=== PATIENT | male | born 1955 | race African-American/Black ===

== ENCOUNTER 2016-10-24 18:00 | Inpatient (IN) ==
[2016-10-24] MEDS ORDERED: ALBUTEROL/IPRATROPIUM 3 ML NEB RESP TX STA (19:32)
[2016-10-24] MEDS ORDERED: ONDANSETRON 4 MG/2 ML VIAL IV STA (19:32)
[2016-10-24] MEDS ORDERED: ASPIRIN 325 MG TABLET PO STA (19:32)
[2016-10-24] MEDS ORDERED: FUROSEMIDE 100 MG/10 ML VIAL IV STA (19:32)
--- NOTE | 2016-10-24 19:35 | EKG Report ---
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
[2016-10-24 20:04] LABS: Basophils % 0.5 % (0.0-0.8); Eosinophils # 0.1 10*3/uL (0.0-0.87); Hematocrit 30.8 VOL% (42.0-52.0); Hemoglobin 10.2 GM/DL (14.0-18.0); Immature Granulocytes % 0.3 %; Immature Granulocytes Absolute 0.02 #; Lymphocytes % 15.7 % (21.2-54.2); Mean Corpuscular HGB Conc 33.1 GM/DL (32-36); Mean Corpuscular Hemoglobin 26 PG (27-34); Mean Platelet Volume 13.7 FL (9.6-12.0); Monocytes # 0.7 10*3/uL (0.11-0.8); Monocytes % 11.5 % (1.7-12.7); Neutrophils # 4.5 10*3/uL (1.4-7.4); Platelet Count 167 T/CUMM (130-400); Red Cell Distribution Width 19.9 % (9.3-17.3); White Blood Count 6.4 T/CUMM (4-12)
[2016-10-24] MEDS ORDERED: MORPHINE 2 MG/1 ML SYRINGE IV STA (20:09)
[2016-10-24] MEDS ORDERED: FUROSEMIDE 40 MG/4 ML VIAL ONE (20:10)
[2016-10-24] MEDS ORDERED: ASPIRIN 325 MG TABLET ONE (20:10)
[2016-10-24] MEDS ORDERED: MORPHINE 2 MG/1 ML SYRINGE ONE (20:10)
[2016-10-24] MEDS ORDERED: FUROSEMIDE 20 MG/2 ML VIAL ONE (20:10)
[2016-10-24] MEDS ORDERED: ONDANSETRON 4 MG/2 ML VIAL ONE (20:10)
[2016-10-24 20:12] LABS: D-Dimer 1.1 MG/L FEU; INR 1.2; PT Patient Result 12.4 SECS
[2016-10-24 20:18] LABS: Albumin 2.6 G/DL (3.4-5.0); Bilirubin,Total 1.1 MG/DL (0.2-1.0); Calcium 8.4 MG/DL (8.5-10.1); Osmolality,Calculated 287.4 MOS/KG (273-304); Potassium 4.2 MMOL/L (3.5-5.1); Total Protein 6.6 G/DL (6.4-8.3)
[2016-10-24 20:20] LABS: Troponin I Only 0.075 NG/ML (0.00-0.045)
--- NOTE | 2016-10-24 20:23 | XRay Report ---
Referring Physician: Lizandro Russell Exam: XR chest 1V portable Date: October 24, 2016 at 7:36 PM Reason: Shortness of breath Comparison: None Findings: The cardiac silhouette is enlarged. The interstitial markings are diffusely prominent bilaterally, which is concerning for pulmonary edema. No pneumothorax is identified, but there is minimal right pleural fluid. No acute osseous process is seen. Impression: 1. Cardiomegaly. 2. The interstitial markings are diffusely prominent bilaterally. This is concerning for mild pulmonary edema. Pneumonia is in the differential but is felt less likely. 3. Minimal right pleural fluid. PROCEDURE INTERPRETED AT [facility] DEPARTMENT OF RADIOLOGY Final Report Signed by: Dr. Linda Canchola
--- NOTE | 2016-10-24 21:13 | Emergency Department Note ---
Francisco Bingham Manpreet, am scribing for, and in the presence of, Lizandro Russell MD 19:27. Drew Bingham Charles R, MD, personally performed the services described in this documentation, ascribed by Joseph Singh in my presence, and it is both accurate and complete . Arrival - Arrival Chief Complaint: Shortness of Breath Stated Complaint: stent/sob/swelling ED Nursing Triage Note: c/o sob with walking. pt also has swelling legs. onset 06/11/16. pt states was dx with pneumonia on 06/11/16 and given a shot of steriods and thats when the swelling and sob started. Mode of Arrival: Wheelchair Limitations: No Limitations Source: Patient Time Seen by Provider: 10/24/16 19:00 - History of Present Illness HPI Narrative: Pt is a 61 y/o male with PMHx of HTN, IDDM, Dyslipidemia, and cardiac catheterization, who presents to the ED with CC of SOB and swelling all over his body since May 2016. Pt was hospitalized in May 2016 where he was Dx for PNA and CHF. Pt finds it difficult to walk across the room without being SOB. Pt takes Plavix and denies CP. Pt's PCP is Dr. Julianne Fermin and protection analyst is Dr Esquivel. No other pains/complaints reported to ED. Onset (ago): month(s) Consistency: constant Severity: moderate Severity scale (1-10): 4 Allergies/Adverse Reactions: Allergies Allergy/AdvReac Type Severity Reaction Status Date / Time No Known Allergies Allergy Unverified 10/24/16 18:12 Review of System - Review of System 12 point system: reviewed and no additional remarkable complaints except as stated - Review of System Constitutional: Absent: chills, fever Respiratory: Present: respiratory distress Cardiovascular: Present: dyspnea on exertion, edema, other (Bilateral LE edema) . Absent: chest pain Gastrointestinal: Absent: abdominal pain, nausea, vomiting Musculoskeletal: Absent: arm pain, leg pain, neck pain Neurological: Absent: headache, weakness Medical,Surgical,& Family Hx - Medical History Cardio: History of: Hypertension Endocrine: History of: Diabetes Mellitus (IDDM), Dyslipidemia - Surgical History Cardiac Surgeries: Sugical HX of: Cardiac Catheterization (stent 2006) - Social History Smoking Status: Never smoker Frequency of Alcohol Use: None Type of Drug Use: None Exam Vital Signs: Vital Signs Temperature 97.2 F L 10/24/16 18:02 Pulse Rate 68 10/24/16 20:02 Respiratory Rate 8 L 10/24/16 20:02 Blood Pressure 174/82 10/24/16 18:02 O2 Sat by Pulse Oximetry 99 10/24/16 20:02 - General General appearance: alert, in no apparent distress, other (Anasarca) - Head Head exam: Present: atraumatic, normocephalic - Eye Eye exam: Present: normal appearance, PERRL, EOMI - ENT ENT exam: Present: normal exam, normal oropharynx, mucous membranes moist, TM's normal bilaterally - Neck Neck exam: Present: full ROM, trachea midline, other (JVD). Absent: normal inspection, tenderness, thyromegaly - Chest Chest inspection: Present: normal inspection, symmetric chest wall rise. Absent : tenderness - Respiratory Respiratory exam: Present: rales (Bilateral Rales). Absent: normal lung sounds bilaterally, accessory muscle use - Cardiovascular Cardiovascular exam: Present: regular rate, normal rhythm, normal heart sounds. Absent: murmur, rubs, gallop - Abdominal Exam Abdominal exam: Present: soft, distention, normal bowel sounds. Absent: tenderness - Extremities Exam Extremities exam: Present: full ROM, other (+3 Bilat Edema). Absent: normal inspection, tenderness - Back Exam Back exam: Present: normal inspection, full ROM. Absent: tenderness - Neurological Exam Neurological exam: Present: alert, oriented X3, CN II-XII intact, reflexes normal - Psychiatric Psychiatric exam: Present: normal affect, normal mood - Skin Skin exam: Present: warm, dry, intact, normal color. Absent: pallor Course - Consultations Consultation #1: Hospitalist will admit patient Time: 21:22 Results - Labs CBC & BMP: 10/24/16 19:08 10/24/16 19:08 Lab Results: I have reviewed the patients labs Labs: Laboratory Tests 10/24/16 10/24/16 19:08 19:08 WBC 6.4 RBC 3.90 Hgb 10.2 L Hct 30.8 L MCV 79.0 L MCH 26 L RDW 19.9 H MPV 13.7 H Lymph % (Auto) 15.7 L Lymph # (Auto) 1.0 L INR 1.2 PT Patient/Control Mix 12.4 D-Dimer, Quantitative 1.1 Laboratory Tests 10/24/16 19:08 Sodium 140 Potassium 4.2 Chloride 107 Carbon Dioxide 25 BUN 25 H Creatinine 1.40 H Glucose 187 H Calcium 8.4 L Total Bilirubin 1.10 H AST 80 H ALT 113 H Alkaline Phosphatase 421 H Troponin I 0.075 H Albumin 2.6 L Globulin 4.0 H Albumin/Globulin Ratio 0.6 L Laboratory Tests 10/24/16 19:08 B-Natriuretic Peptide 1215 H - Diagnostic Findings Procedure: Chest x-ray: report reviewed by me (1. Cardiomegaly. 2. The interstitial markings are diffusely prominent bilaterally. This is concerning for mild pulmonary edema. Pneumonia is the differential but is felt less likely. 3. Minimal right pleural fluid.) Critical Care Time Critical Care Time: Yes Total Critical Care Time: 60 Disposition Clinical Impression: Congestive heart failure, Acute dyspnea, Exertional dyspnea, Anasarca, Elevated LFTs, Morbid obesity, Peripheral vascular disease, Pedal edema, Renal insufficiency Case discussed with: patient, patient's family Disposition: Still a Patient Condition: Guarded Time of Disposition: 21:23
[2016-10-24 21:40] LABS: Apearance,Urine CLEAR (Clear); Bacteria,Urine Occasional /HPF (Few); Bilirubin,Urine Negative (Negative); Blood, Urine Small mg/dL (Negative); Glucose,Urine (UA) 50 mg/dL (Negative); Granular Casts,Urine 15 /LPF (0-1); Hyaline Casts,Urine 12 /LPF (0-3); Ketones,Urine Negative (Negative); Mucus,Urine Occasional /LPF (Occasional); Nitrite,Urine Negative (Negative); Protein,Urine >=500 MG/DL; RBC,Urine 1 /HPF (0-4); Squamous Epithelial Cell,Urine Occasional /HPF (0-10); Urine Color Yellow (Yellow); Urine Specific Gravity 1.013 (1.001-1.035); WBC,Urine <1 /HPF (0-6)
--- NOTE | 2016-10-24 22:19 | Hospitalist History & Physical ---
Assessment and Plan (1) Congestive heart failure Status: Acute Current Visit: Yes (2) Acute dyspnea Status: Acute Current Visit: Yes (3) Exertional dyspnea Status: Acute Current Visit: Yes (4) Anasarca Status: Acute Current Visit: Yes (5) Elevated LFTs Status: Acute Current Visit: Yes (6) Morbid obesity Status: Acute Current Visit: Yes (7) Peripheral vascular disease Status: Acute Current Visit: Yes (8) Pedal edema Status: Acute Assessment and plan: Our plan for this patient will be admission to our service. He will need to be admitted to telemetry bed and we will schedule Lasix twice a day. Will also check cardiac enzymes. Check 2D echo. Repeat CMP in the morning. I suspect his increase in transaminases is associated with his heart failure. Will continue other home meds as appropriate. Obtain records from [place]. Current Visit: Yes History of Present Illness Chief complaint: Shortness of breath and lower extremity swelling History of present illness: Mr. Ahumada is a 61 year old male with past medical history significant for hypertension, congestive heart failure, diabetes and dyslipidemia who is normally sees Dr. Long at [facility]. They said his lower extremity edema does not improve seems like to get worse at times and they wanted a second opinion and came to our hospital for further evaluation. Apparently he was hospitalized in May 2016 with a diagnosis of congestive heart failure and a pneumonia. Patient finds it difficult to walk across room without getting short of breath. He does weigh 141 kg and morbidly obese. I was consulted to admit him through the emergency room Allergies Allergy/AdvReac Type Severity Reaction Status Date / Time No Known Allergies Allergy Unverified 10/24/16 18:12 Medical,Surgical,& Family Hx - Medical History Cardio: History of: Hypertension Endocrine: History of: Diabetes Mellitus (IDDM), Dyslipidemia - Surgical History Cardiac Surgeries: Sugical HX of: Cardiac Catheterization (stent 2006) - Family History Family History: Reports;: Family Hypertension - Social History Smoking Status: Never smoker Frequency of Alcohol Use: None Type of Drug Use: None 12 point system: reviewed and no additional remarkable complaints except as stated Exam - Constitutional General appearance: no acute distress, morbidly obese - Head Head exam: Present: normal inspection - Eye Eye exam: Present: EOMI Pupils: Present: KENAN - ENT ENT exam: Present: normal exam - Neck Neck exam: Present: normal inspection - Respiratory Respiratory exam: Present: rales - Cardiovascular Cardiovascular exam: Present: regular rate and rhythm - GI/Abdominal GI/Abdominal exam: Present: normal bowel sounds, distended, hyperactive bowel sounds. Absent: tenderness, rebound - Extremities Exam Extremities exam: Present: edema - Back Exam Back exam: Present: normal inspection - Neurological Exam Neurological exam: Present: alert - Psychiatric Psychiatric exam: Present: normal affect - Skin Skin exam: Present: normal color Results - Labs CBC & BMP: 10/24/16 19:08 10/24/16 19:08
[2016-10-24] MEDS ORDERED: MAGNESIUM SULF RIDER 4 GM in PREMIX 1 EACH IV PRN (22:22)
[2016-10-24] MEDS ORDERED: ONDANSETRON 4 MG/2 ML VIAL IV PRN (22:22)
[2016-10-24] MEDS ORDERED: MAGNESIUM SULF RIDER 2 GM in PREMIX 1 EACH IV PRN (22:22)
[2016-10-24] MEDS ORDERED: GLUCAGON 1 MG VIAL IM PRN (22:22)
[2016-10-24] MEDS ORDERED: ACETAMINOPHEN 325 MG TABLET PO PRN (22:22)
[2016-10-24] MEDS ORDERED: DEXTROSE 50% 25 GM/50 ML VIAL IV PRN (22:22)
[2016-10-24] MEDS ORDERED: LABETALOL 20 MG/4 ML SYRINGE IV PRN (22:27)
[2016-10-25] MEDS: ENOXAPARIN 40 MG/0.4 ML SYRINGE SUBCUT SCH ×2 (00:10→21:40)
[2016-10-25] MEDS ORDERED: ONDANSETRON 4 MG TABLET PO PRN (01:00)
[2016-10-25 02:10] LABS: Basophils % 0.3 % (0.0-0.8); Eosinophils # 0.1 10*3/uL (0.0-0.87); Eosinophils % 1.9 % (0.00-10.9); Hemoglobin 9.8 GM/DL (14.0-18.0); Immature Granulocytes % 0.3 %; Immature Granulocytes Absolute 0.02 #; Lymphocytes # 1.3 10*3/uL (1.4-4.0); Lymphocytes % 20.5 % (21.2-54.2); Mean Corpuscular HGB Conc 32.7 GM/DL (32-36); Mean Corpuscular Hemoglobin 26 PG (27-34); Mean Corpuscular Volume 78.5 FL (87-102); Mean Platelet Volume 12.9 FL (9.6-12.0); Monocytes # 0.6 10*3/uL (0.11-0.8); Monocytes % 9.7 % (1.7-12.7); Neutrophils # 4.1 10*3/uL (1.4-7.4); Neutrophils % 67.3 % (38.7-73.9); Platelet Count 157 T/CUMM (130-400); Red Blood Count 3.82 MC/CUMM (3.8-5.5); Red Cell Distribution Width 19.9 % (9.3-17.3); White Blood Count 6.2 T/CUMM (4-12)
[2016-10-25 02:43] LABS: Troponin I Only 0.071 NG/ML (0.00-0.045)
[2016-10-25 07:35] LABS: Alanine Aminotransferase 99 U/L (16-61); Albumin 2.3 G/DL (3.4-5.0); Alkaline Phosphatase 386 U/L (45-117); Aspartate Amino Transferase 69 U/L (0-37); Blood Urea Nitrogen 25 MG/DL (7-18); Calcium 8.4 MG/DL (8.5-10.1); Glucose 223 MG/DL (74-106); Osmolality,Calculated 293.1 MOS/KG (273-304); Potassium 4.3 MMOL/L (3.5-5.1); Sodium 142 MMOL/L (136-145)
[2016-10-25 07:37] LABS: Troponin I Only 0.068 NG/ML (0.00-0.045)
[2016-10-25] MEDS: FUROSEMIDE 40 MG/4 ML VIAL IV SCH ×2 (08:48→15:15)
[2016-10-25] MEDS ORDERED: ENALAPRIL 10 MG TABLET PO SCH (09:00)
[2016-10-25] MEDS: INSULIN REGULAR 100 UNIT/ML SUBCUT SCH ×4 (09:44→21:39)
[2016-10-25] MEDS: CLOPIDOGREL 75 MG TABLET PO SCH (09:44)
[2016-10-25] MEDS: METOPROLOL SUCCINATE XL 100 MG TABLET PO SCH (09:45)
[2016-10-25] MEDS: ASPIRIN EC 81 MG TABLET PO SCH (09:45)
[2016-10-25] MEDS: SPIRONOLACTONE 25 MG TABLET PO SCH (09:45)
[2016-10-25] MEDS: ISOSORBIDE MONONITRATE 60 MG TABLET PO SCH (09:45)
[2016-10-25] MEDS: PANTOPRAZOLE 40 MG TABLET PO SCH (09:45)
--- NOTE | 2016-10-25 12:04 | Cardiology Consult Note ---
<Janice Fonseca E - Last Filed: 10/25/16 12:50> Assessment and Plan - Time spent with patient Time spent with patient: Greater than 30 minutes (due to assessment, plan, and documentation) (1) Congestive heart failure Status: Acute Assessment and plan: SEE PLAN OF CARE LISTED BELOW. Current Visit: Yes (2) Acute dyspnea Status: Acute Assessment and plan: SEE PLAN OF CARE LISTED BELOW. Current Visit: Yes (3) Anasarca Status: Acute Assessment and plan: SEE PLAN OF CARE LISTED BELOW. Current Visit: Yes (4) Exertional dyspnea Status: Acute Assessment and plan: SEE PLAN OF CARE LISTED BELOW. Current Visit: Yes (5) Elevated LFTs Status: Acute Assessment and plan: SEE PLAN OF CARE LISTED BELOW. Current Visit: Yes (6) Hypertension Status: Chronic Assessment and plan: SEE PLAN OF CARE LISTED BELOW. Current Visit: Yes (7) Diabetes Status: Chronic Assessment and plan: SEE PLAN OF CARE LISTED BELOW. Current Visit: Yes (8) Hyperlipidemia Status: Chronic Assessment and plan: SEE PLAN OF CARE LISTED BELOW. Current Visit: Yes (9) Morbid obesity Status: Chronic Assessment and plan: SEE PLAN OF CARE LISTED BELOW. Current Visit: Yes (10) Peripheral vascular disease Status: Chronic Assessment and plan: SEE PLAN OF CARE LISTED BELOW. Current Visit: Yes (11) Renal insufficiency Status: Acute Assessment and plan: SEE PLAN OF CARE LISTED BELOW. Current Visit: Yes History of Present Illness - Data of Consult Patient: new to practice Consult date: 10/24/16 Requesting Physician: Tye Watts Primary care physician: Julianne Arana - Consult Narrative Reason for consult: CHF, BLE edema History of present illness: PUBLICITY MANAGER: DR. NORIEGA @ [place] PCP: DR. JULIANNE ARANA Mr. Ahumada is a 61 year old male with a history of congestive heart failure, peripheral vascular disease, hypertension, diabetes, hyperlipidemia, morbid obesity. Risk factors are significant for: age, hypertension, hyperlipidemia, diabetes, sedentary lifestyle, obesity. He is a lifetime nonsmoker. Mr. Ahumada presented to our emergency room last night for further evaluation of his bilateral lower extremity edema. He has been followed at [facility] and tells me he was hospitalized in May 2016 with CHF and pneumonia and has been having trouble ever since. He tells me that his edema will improve and then worsen and has fluctuated since May and he wanted to obtain a second opinion regarding causes and treatment options. We are currently trying to obtain recent records from [facility]. He reports that he has undergone stress testing and heart catheterization but does not recall having stents placed. Mr. Ahumada tells me that he has had dyspnea on exertion in addition to his edema. He denies chest pain, palpitations, dizziness, lightheadedness, or syncope. He has significant pitting edema in his bilateral lower extremities, in the pannus of his abdomen, and in his thighs and buttocks. On admission, his BNP was noted to be 1215 and creatinine was 1.4. He had some trivially elevated troponins with normal CK-MB and CPK. His chest x-ray is suggestive of mild pulmonary edema bilaterally. Of note, Mr. Ahumada reports he previously saw Dr. Bradley before he left [place] and thinks he might like to follow up with him after discharge. I informed the patient we would be happy to schedule a follow up appointment with the windows consultant of his choosing. Dr. Antunez to follow with further plan and addendum. ASSESSMENT/PLAN: 1. CONGESTIVE HEART FAILURE - 2. ACUTE DYSPNEA - Continue current plan of care. O2 PRN. Continue Lasix. Currently breathing comfortably on O2 via NBP. 3. ANASARCA - Patient is currently being treated with diuretics. This is slowly improving. 4. EXERTIONAL DYSPNEA - Continue current medications. Will discuss external facility records with Dr. Antunez and await his recommendations. 5. ELEVATED LFT'S - Check hepatitis panel. 6. HYPERTENSION - Continue current medications. May require medication adjustments. Will monitor. 7. DIABETES - Hospital medicine following. 8. HYPERLIPIDEMIA - Check lipid panel in AM. Continue Lovastatin. 9. MORBID OBESITY 10. PERIPHERAL VASCULAR DISEASE - Followed by Dr. Jayson Parr. 11. RENAL INSUFFICIENCY - Creatinine stable at 1.4. Will follow BMP. At the time of my exam and interview with the patient and his , I did not have access to his [place] records. At the time of my documentation, they have now been scanned into the computer and reveal that he had an abnormal stress test in May 2016 and declined cardiac catheterization in favor of medical management. Echocardiogram performed on 06/08/16 revealed an ejection fraction of 50% +/- 5% and cardiac stress test revealed EF 28% with findings suggestive of moderate to severe extensive myocardial infarction with minimal gisela- infarction ischemia versus severe obstructive CAD in these segments. According to the [place] records, he has a history of myocardial infarction with stent placement in 2009. CC: Christina Alves MD - Home Medications and Allergies Home Medications: Home Medications Medication Instructions Recorded Confirmed Type Aspirin [Aspirin EC] 81 mg PO DAILY 10/24/16 10/24/16 History Clopidogrel Bisulfate [Clopidogrel] 75 mg PO DAILY 10/24/16 10/24/16 History Enalapril Tab [Vasotec Tab] 20 mg PO BID 10/24/16 10/24/16 History Furosemide [Furosemide] 40 mg PO DAILY 10/24/16 10/24/16 History Hydralazine HCl [Hydralazine HCl] 50 mg PO TID 10/24/16 10/24/16 History Insulin Detemir [Levemir FlexPen] 40 unit SUBCUT BID 10/24/16 10/24/16 History Isosorbide Mononitrate [Isosorbide 60 mg PO DAILY 10/24/16 10/24/16 History Mononitrate ER] Lovastatin [Lovastatin] 20 mg PO DAILY W/SUPPER 10/24/16 10/24/16 History Metformin HCl [Metformin HCl] 1,000 mg PO BID 10/24/16 10/24/16 History Metoprolol Succinate [Metoprolol 100 mg PO DAILY 10/24/16 10/24/16 History Succinate] Ondansetron Odt Tab [Zofran Odt] 4 mg PO Q8H 10/24/16 10/24/16 History Spironolactone [Spironolactone] 25 mg PO DAILY 10/24/16 10/24/16 History Allergies/Adverse Reactions: Allergies Allergy/AdvReac Type Severity Reaction Status Date / Time No Known Allergies Allergy Unverified 10/24/16 18:12 Review of systems: - Constitutional: Present: stops breathing during sleep, As per HPI. Absent: anorexia, chills, daytime sleepiness, excessive sweating, fever(s), frequent falls, headache(s), increased appetite, lethargy, malaise, night sweats, weakness, weight gain, weight loss, fatigue. - EENT Eyes: Present: As per HPI. Absent: blurry vision, diplopia, loss of vision Ears: Present: As per HPI. Absent: decreased hearing, ear discharge, ear pain Nose, mouth and throat: Present: As per HPI. Absent: dysphagia, epistaxis, headache(s), hoarseness, lip swelling, nasal congestion, neck mass, neck pain, sinus pressure, sore throat, throat swelling, tongue swelling, vertigo - Cardiovascular: Present: dyspnea, dyspnea on exertion, edema, as per HPI. Absent: chest pain at rest, chest pain with activity, claudication, diaphoresis , radiating jaw, neck or arm pain, lightheadedness, orthopnea, palpitations, PND - Respiratory: Present: snoring, dyspnea, dyspnea on exertion, as per HPI. Absent: cough, hemoptysis, wheezing, pain on inspiration - Gastrointestinal: Present: As per HPI. Absent: abdominal pain, bloating, change in bowel habits, constipation, diarrhea, heartburn, hematemesis, hematochezia, loose stools, melena, nausea, vomiting - Genitourinary: Present: As per HPI. Absent: difficulty urinating, dysuria, flank pain, hematuria, nocturia, urinary frequency, urinary incontinence - Musculoskeletal: Present: As per HPI. Absent: arthralgias, back pain, joint swelling, limited range of motion, muscle cramps, muscle weakness, myalgias - Neurological: Present: As per HPI. Absent: abnormal gait, abnormal speech, behavioral changes, confusion, convulsions, disequilibrium, dizziness, focal weakness, frequent falls, headache(s), memory loss, numbness, paresthesias, radicular pain, syncope, tremor(s) - Psychiatric: Present: As per HPI. Absent: anxiety, confusion, depression, panic attacks - Endocrine: Present: As per HPI. Absent: cold intolerance, fatigue, heat intolerance, polydipsia, polyphagia - Hematologic/Lymphatic: Present: As per HPI. Absent: easy bleeding, easy bruising, lymphadenopathy Medical,Surgical,& Family Hx - Medical History Cardio: History of: CHF, Hypertension, PVD Endocrine: History of: Diabetes Mellitus (IDDM), Dyslipidemia - Surgical History Cardiac Surgeries: Sugical HX of: Cardiac Catheterization (stent 2006) - Family History Family History: Reports;: Family Hypertension - Social History Smoking Status: Never smoker Frequency of Alcohol Use: None Type of Drug Use: None Marital Status: Lives With:: Spouse Functional capacity: independent ambulation Physical Examination Vital Signs Temp Pulse Resp BP Pulse Ox 97.2 F L 70 20 174/82 97 10/24/16 18:02 10/24/16 18:02 10/24/16 18:02 10/24/16 18:02 10/24/16 18:02 Other: General appearance: Pleasant and cooperative. Morbid obesity, no acute distress. - Head Head exam: Present: normal inspection, normocephalic, atraumatic. Absent: hematoma, laceration - Eye Eye exam: Present: EOMI. Absent: conjunctival injection, nystagmus, periorbital swelling, scleral icterus, laceration to eyelids Pupils: Present: PERRL. Absent: constricted, dilated, fixed, irregular, unequal - ENT ENT exam: Present: normal exam, normal external ear exam - Neck Neck exam: Present: normal inspection. Absent: lymphadenopathy, meningismus, tenderness, thyromegaly - Respiratory Respiratory exam: Present: clear to auscultation bilaterally, decreased breath sounds to bilateral lower bases. Absent: accessory muscle use, chest wall tenderness - Cardiovascular Cardiovascular exam: Present: regular rate and rhythm. Absent: carotid bruit, gallop, JVD, rubs, murmur - GI/Abdominal GI/Abdominal exam: Present: normal bowel sounds, soft, pitting edema to abdominal pannus. Absent: distended, firm, guarding, hernia, mass, tenderness, rebound. - Extremities Exam Extremities exam: Present: normal inspection, normal capillary refill. Upper extremity pulses 2+. Lower extremity pulses 2+. 2+ BLE pitting edema. Absent: calf tenderness -Musculoskeletal Exam Musculoskeletal: Present: No Fluid Collection, No Pain, Normal Range of Motion - Back Exam Back exam: Present: normal inspection. Absent: muscle spasm, vertebral tenderness - Neurological Exam Neurological exam: Present: alert, oriented X3, grossly intact without resting or essential tremor - Psychiatric Psychiatric exam: Present: normal affect, normal mood - Skin Skin exam: Present: normal color, warm, dry, intact. Absent: cyanosis, diaphoretic, rash, urticaria Result/EKG - Labs CBC & BMP: 10/25/16 01:40 10/25/16 03:37 Lab Results: I have reviewed the past 24 hour labs Labs: Laboratory Results - last 24 hr 10/25/16 10/25/16 10/25/16 01:40 01:40 03:37 WBC 6.2 RBC 3.82 Hgb 9.8 L Hct 30.0 L MCV 78.5 L MCH 26 L MCHC 32.7 RDW 19.9 H Plt Count 157 MPV 12.9 H Neut % (Auto) 67.3 Lymph % (Auto) 20.5 L [place] % (Auto) 9.7 Eos % (Auto) 1.9 Baso % (Auto) 0.3 Neut # (Auto) 4.1 Lymph # (Auto) 1.3 L [place] # (Auto) 0.6 Eos # (Auto) 0.1 Baso # (Auto) 0.0 Immature Gran % 0.3 Nucleated RBC % 0.0 Immature Gran # 0.02 Nucleated RBCs # 0.00 Sodium 142 Potassium 4.3 Chloride 109 H Carbon Dioxide 25 Anion Gap 12.3 BUN 25 H Creatinine 1.40 H GFR Calculation 94 BUN/Creatinine Ratio 17.00 Glucose 223 H POC Glucose Calculated Osmolality 293.1 Calcium 8.4 L Total Bilirubin 0.90 AST 69 H ALT 99 H Alkaline Phosphatase 386 H Total Creatine Kinase 185 161 CK-MB (CK-2) 3.0 2.7 Troponin I 0.071 H 0.068 H Total Protein 6.0 L Albumin 2.3 L Globulin 3.7 H Albumin/Globulin Ratio 0.6 L 10/25/16 10/25/16 08:02 11:15 WBC RBC Hgb Hct MCV MCH MCHC RDW Plt Count MPV Neut % (Auto) Lymph % (Auto) [place] % (Auto) Eos % (Auto) Baso % (Auto) Neut # (Auto) Lymph # (Auto) [place] # (Auto) Eos # (Auto) Baso # (Auto) Immature Gran % Nucleated RBC % Immature Gran # Nucleated RBCs # Sodium Potassium Chloride Carbon Dioxide Anion Gap BUN Creatinine GFR Calculation BUN/Creatinine Ratio Glucose POC Glucose 203 H 264 H Calculated Osmolality Calcium Total Bilirubin AST ALT Alkaline Phosphatase Total Creatine Kinase CK-MB (CK-2) Troponin I Total Protein Albumin Globulin Albumin/Globulin Ratio - EKG EKG results: interpreted by me, sinus rhythm <Tye Antunez - Last Filed: 10/25/16 18:30> Assessment and Plan (1) Hypoalbuminemia Status: Acute Assessment and plan: This may very well be secondary to his proteinuria which is quite significant based on his urinalysis. Current Visit: Yes (2) Proteinuria Status: Acute Assessment and plan: Etiology of this is unclear but probably has nephrotic syndrome. That certainly would account for much of his findings. Await his 24-hour urine. Current Visit: Yes (3) Nephrotic syndrome Status: Acute Assessment and plan: Evidence of this is his severe proteinuria. We will await a 24-hour urine. Current Visit: Yes History of Present Illness - Consult Narrative History of present illness: Patient personally interviewed and examined and chart reviewed. His family is present including a sister and son. 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 I agree with the evaluation and assessment and plan. In addition and summation Mr. Ahumada is a 61 year old male who is been evaluated previously by Dr. Noriega at [facility]. It is interesting as noted above that he had echocardiogram that looked fairly unremarkable but a stress test with the ejection fraction is markedly suppressed compared to his echocardiogram and release possible extensive myocardial infarction and gisela- infarct ischemia. The patient though is been asymptomatic without any angina or anginal equivalent. He does have some shortness of breath. He is been admitted for evaluation of this. His echocardiogram reveals an ejection fraction around 55% with right and left atrial enlargement with tricuspid regurgitation and at least moderately elevated right-sided pressures. Of interesting findings is that historically of having what sounds to be sleep apnea. He certainly has marked obesity a lot as a centralized. This certainly can contribute to his other issues. His lab work reveals hypoalbuminemia and significant proteinuria. This certainly raises the issue of nephrotic syndrome. I think nephrology needs to be involved in this case. At present I think we need to get a 24-hour urine and manage his fluid the best we can but must be cautious with his hypo-albuminemia causing prerenal insufficiency. We will continue to monitor the patient while in the hospital. I do not think are catheterization is indicated at this time. CC: Christina Alves MD Physical Examination Vital Signs Temp Pulse Resp BP Pulse Ox 97.2 F L 70 20 174/82 97 10/24/16 18:02 10/24/16 18:02 10/24/16 18:02 10/24/16 18:02 10/24/16 18:02 Result/EKG - Labs CBC & BMP: 10/25/16 01:40 10/25/16 03:37 Labs: Laboratory Results - last 24 hr 10/25/16 10/25/16 10/25/16 01:40 01:40 03:37 WBC 6.2 RBC 3.82 Hgb 9.8 L Hct 30.0 L MCV 78.5 L MCH 26 L MCHC 32.7 RDW 19.9 H Plt Count 157 MPV 12.9 H Neut % (Auto) 67.3 Lymph % (Auto) 20.5 L [place] % (Auto) 9.7 Eos % (Auto) 1.9 Baso % (Auto) 0.3 Neut # (Auto) 4.1 Lymph # (Auto) 1.3 L [place] # (Auto) 0.6 Eos # (Auto) 0.1 Baso # (Auto) 0.0 Immature Gran % 0.3 Nucleated RBC % 0.0 Immature Gran # 0.02 Nucleated RBCs # 0.00 Sodium 142 Potassium 4.3 Chloride 109 H Carbon Dioxide 25 Anion Gap 12.3 BUN 25 H Creatinine 1.40 H GFR Calculation 94 BUN/Creatinine Ratio 17.00 Glucose 223 H POC Glucose Calculated Osmolality 293.1 Calcium 8.4 L Total Bilirubin 0.90 AST 69 H ALT 99 H Alkaline Phosphatase 386 H Total Creatine Kinase 185 161 CK-MB (CK-2) 3.0 2.7 Troponin I 0.071 H 0.068 H Total Protein 6.0 L Albumin 2.3 L Globulin 3.7 H Albumin/Globulin Ratio 0.6 L Amylase Lipase IgG IgA IgM Hepatitis A IgM Ab Hep Bs Antigen Hep B Core IgM Ab Hepatitis C Antibody 10/25/16 10/25/16 10/25/16 08:02 11:15 12:29 WBC RBC Hgb Hct MCV MCH MCHC RDW Plt Count MPV Neut % (Auto) Lymph % (Auto) [place] % (Auto) Eos % (Auto) Baso % (Auto) Neut # (Auto) Lymph # (Auto) [place] # (Auto) Eos # (Auto) Baso # (Auto) Immature Gran % Nucleated RBC % Immature Gran # Nucleated RBCs # Sodium Potassium Chloride Carbon Dioxide Anion Gap BUN Creatinine GFR Calculation BUN/Creatinine Ratio Glucose POC Glucose 203 H 264 H Calculated Osmolality Calcium Total Bilirubin AST ALT Alkaline Phosphatase Total Creatine Kinase CK-MB (CK-2) Troponin I Total Protein 6.4 Albumin Globulin Albumin/Globulin Ratio Amylase 30 Lipase 161.0 IgG 1470 IgA 308 IgM 92 Hepatitis A IgM Ab Hep Bs Antigen Hep B Core IgM Ab Hepatitis C Antibody 05/10/17 05/10/17 12:29 16:53 WBC RBC Hgb Hct MCV MCH MCHC RDW Plt Count MPV Neut % (Auto) Lymph % (Auto) [place] % (Auto) Eos % (Auto) Baso % (Auto) Neut # (Auto) Lymph # (Auto) [place] # (Auto) Eos # (Auto) Baso # (Auto) Immature Gran % Nucleated RBC % Immature Gran # Nucleated RBCs # Sodium Potassium Chloride Carbon Dioxide Anion Gap BUN Creatinine GFR Calculation BUN/Creatinine Ratio Glucose POC Glucose 163 H Calculated Osmolality Calcium Total Bilirubin AST ALT Alkaline Phosphatase Total Creatine Kinase CK-MB (CK-2) Troponin I Total Protein Albumin Globulin Albumin/Globulin Ratio Amylase Lipase IgG IgA IgM Hepatitis A IgM Ab Negative Hep Bs Antigen Negative Hep B Core IgM Ab Negative Hepatitis C Antibody Negative
[2016-10-25 13:51] LABS: Hepatitis A Ab IgM Quant 0.07 Index; Hepatitis A Ab IgM Result Negative (Negative); Hepatitis B Core IgM Quant 0.17 Index; Hepatitis B Core IgM Result Negative (Negative); Hepatitis B Surface Ag Quant 0.38 Index; Hepatitis B Surface Ag Result Negative (Negative); Hepatitis C Virus Ab Quant 0.12 Index; Hepatitis C Virus Ab Result Negative (Negative)
--- NOTE | 2016-10-25 14:06 | Physician Query Form ---
CLICK EDIT DOCUMENT TO SELECT QUERY ANSWER --> OK --> SIGN Juliann Akers RN Clinical Pack Out Operator W) [phone] (f) [phone] [email or web address] PROVIDERS: Make your selection(s) from the choices in EACH section by typing an "x" and enter comments in the comment section. Please use your independent medical judgment in providing your response. This request does not imply that any particular answer is desired or expected. CLINICAL INDICATORS: (Providers should not edit this section) Based on documentation of "acute CHF. His chest x-ray is suggestive of mild pulmonary edema bilaterally. Echocardiogram performed on 06/08/16 revealed an ejection fraction of 50% +/- 5%", [id number]. Pt. treated with IV Lasix. Please provide further specificity regarding CHF. TYPE: ( ) Systolic (HFrEF - heart failure with reduced systolic function/EF) (x ) Diastolic (HFpEF - heart failure with preserved systolic function/EF) ( ) Combined Systolic/Diastolic ( ) Other, please specify: ( ) Clinically unable to determine ( ) The patient does NOT have CHF COMMENTS: Use of terms such as suspected, likely, or probable (associated with a specific diagnosis that is being evaluated, monitored, or treated as if it exists) are acceptable and can be restated in the discharge summary if not ruled out. MTDD
[2016-10-25 16:39] LABS: Total Protein 6.4 G/DL (6.4-8.3)
--- NOTE | 2016-10-25 17:24 | Sleep Medicine Consult ---
Assessment and Plan (1) Unspecified sleep apnea Status: Acute Assessment and plan: This patient does have symptoms concerning for sleep apnea and with his medical comorbidities, I would recommend sleep study. We may be able to do HST at some point but if not, he needs to be studied in the lab. I do think in lab polysomnography would be a better evaluation for him given the complexity of his illnesses. Current Visit: Yes (2) Congestive heart failure Status: Acute Assessment and plan: Untreated sleep apnea certainly can be an exacerbating factor to both diastolic and systolic related congestive heart failure. Current Visit: Yes (3) Elevated LFTs Status: Acute Assessment and plan: This patient does have evidence of ascites on physical exam and in addition, does have abnormal liver function studies. I would recommend ultrasound evaluation of his liver and abdomen. Some of this could be related to a component of right heart failure. He denies any significant history of alcohol consumption. Current Visit: Yes History of Present Illness Chief complaint: Sleep apnea History of present illness: Mr. Ahumada is a 61 year old male who had been admitted with shortness of breath and generalized swelling. During the course of his evaluation, it was noted that he was a loud snore. Sleep medicine was consulted. The patient's is not present. He does acknowledge a history of snoring and does sometimes awaken from sleep short of breath. He does awaken multiple times during the night to urinate. He does have sleepiness during the day. His main complaint has been recent increase in generalized swelling, particularly abdominal swelling and edema. He said exercise intolerance and shortness of breath. He has never had a previous sleep evaluation. Home Medications Medication Instructions Recorded Confirmed Type Aspirin [Aspirin EC] 81 mg PO DAILY 10/24/16 10/24/16 History Clopidogrel Bisulfate [Clopidogrel] 75 mg PO DAILY 10/24/16 10/24/16 History Enalapril Tab [Vasotec Tab] 20 mg PO BID 10/24/16 10/24/16 History Furosemide [Furosemide] 40 mg PO DAILY 10/24/16 10/24/16 History Hydralazine HCl [Hydralazine HCl] 50 mg PO TID 10/24/16 10/24/16 History Insulin Detemir [Levemir FlexPen] 40 unit SUBCUT BID 10/24/16 10/24/16 History Isosorbide Mononitrate [Isosorbide 60 mg PO DAILY 10/24/16 10/24/16 History Mononitrate ER] Lovastatin [Lovastatin] 20 mg PO DAILY W/SUPPER 10/24/16 10/24/16 History Metformin HCl [Metformin HCl] 1,000 mg PO BID 10/24/16 10/24/16 History Metoprolol Succinate [Metoprolol 100 mg PO DAILY 10/24/16 10/24/16 History Succinate] Ondansetron Odt Tab [Zofran Odt] 4 mg PO Q8H 10/24/16 10/24/16 History Spironolactone [Spironolactone] 25 mg PO DAILY 10/24/16 10/24/16 History Allergies Allergy/AdvReac Type Severity Reaction Status Date / Time No Known Allergies Allergy Unverified 10/24/16 18:12 Review of systems: Otherwise unremarkable from a sleep standpoint. Exam (Pulmonay) H&P - Constitutional Vitals: Period Temp Pulse Resp BP Sys/Sanderson Pulse Ox Last 24 Hr 97.9 F-99.4 F 60-68 16-20 140-166/70-89 96-98 Exam: He is alert and responsive in no acute distress. Pupils equal round reactive to light and accommodation. Extraocular movements intact. Oropharynx with a class IV Mallampati exam. Neck supple without adenopathy or thyromegaly. Chest with fair air movement and no focal wheeze, rhonchi, or rales. Cardiac exam reveals a regular rhythm without murmur or gallop. Abdomen obese nontender with a positive fluid shift consistent with ascites. Extremities with pitting edema. Neurologically, he is grossly intact. He moves all extremities with good strength. Medical,Surgical,& Family Hx - Medical History Cardio: History of: CHF, Hypertension, PVD Endocrine: History of: Diabetes Mellitus (IDDM), Dyslipidemia - Surgical History Cardiac Surgeries: Sugical HX of: Cardiac Catheterization (stent 2006) - Family History Family History: Reports;: Family Hypertension - Social History Smoking Status: Never smoker Frequency of Alcohol Use: None Type of Drug Use: None Results - Labs CBC & BMP: 10/25/16 01:40 10/25/16 03:37 Lab Results: I have reviewed the past 24 hour labs Labs: Notable for abnormal liver function studies.
[2016-10-25] MEDS: LOVASTATIN 20 MG TABLET PO SCH (17:30)
--- NOTE | 2016-10-25 17:41 | ECHO Report ---
Jasmeet Ahumada Exam Date: 10/25/2016 10:34 Referring Physician: Technologist: Evy Martinez RDCS Age: 61 Ht (in): 72 Wt (lb): 311 Gender: M Exam Location: [facility] Echo Indications: Heart failure, unspecified, Dyspnea, unspecified, Anasarca, Elevated LFTs, Essential (primary) hypertension, Renal insufficiency, Morbid (severe) obesity due to excess calories, Peripheral vascular disease, unspecified, Hyperlipidemia, unspecified, Edema, unspecified, IDDM BP: 140 / 71 HR: 66 Rhythm: Sinus Technical Quality: IMPRESSIONS 1. Left ventricle is normal size and systolic function with ejection fraction 55%. There is mild concentric left ventricular hypertrophy. 2. Right ventricle is normal size and systolic function. 3. Right and left atrium are moderately dilated. 4. Aortic and mitral valves or anatomically and by Doppler normal. 5. Mild to moderate tricuspid valve regurgitation. 6. Mild pulmonic valve insufficiency 7. Moderate to severely elevated right-sided pressures. MEASUREMENTS (Male / Female) Normal Values 2D ECHO LV Diastolic Diameter PLAX 5.3 cm 4.2 - 5.9 / 3.9 - 5.3 cm LV Systolic Diameter PLAX 4.4 cm LV Fractional Shortening PLAX 18.0 % IVS Diastolic Thickness 1.3 cm 0.6 - 1.0 / 0.6 - 0.9 cm LVPW Diastolic Thickness 1.6 cm 0.6 - 1.0 / 0.6 - 0.9 cm RV Internal Dim ED PLAX 3.7 cm Aortic Root Diameter 3.1 cm LA Systolic Diameter LX 5.4 cm 3.0 - 4.0 / 2.7 - 3.8 cm DOPPLER TR Peak Velocity 354.0 cm/s TR Peak Gradient 50.1 mmHg FINDINGS Left Ventricle Normal left ventricular cavity size. Mild left ventricular hypertrophy. Left ventricular ejection fraction is estimated at 55 %. Right Ventricle The right ventricle is normal in size and function. Right Atrium Moderately increased right atrial size. Left Atrium Moderately increased left atrial size. Mitral Valve Thickened mitral valve. Mild mitral valve regurgitation. Aortic Valve Morphologically normal tricuspid aortic valve without sclerosis or stenosis. There is no aortic regurgitation. Tricuspid Valve Morphologically normal tricuspid valve. Fepx-bp-zutvjgpe tricuspid valve regurgitation. Tricuspid regurgitation velocities suggest a PAP of 60 mmHg. Pulmonic Valve Morphologically normal pulmonic valve. Mild pulmonary valve regurgitation. Pericardium Normal pericardium without effusion. Aorta Normal ascending aorta dimension. Tye Antunez MD (Electronically Signed) Final Date: 25 Oct 2016 17:40
--- NOTE | 2016-10-25 19:10 | Hospitalist Progress Note ---
Assessment and Plan (1) Congestive heart failure Status: Acute Assessment and plan: cont lasix 40 mg IV every 12 hour, cont metoprolol, hold dale Current Visit: Yes (2) Elevated LFTs Status: Acute Assessment and plan: hepatitis panel negative, could be hepatic congestion Current Visit: Yes (3) Hypertension Status: Chronic Assessment and plan: metoprolol and hydralazine, isosorbide mononitrate Current Visit: Yes (4) Diabetes Status: Chronic Assessment and plan: hgb A1c, diabetic education, glyburide started Current Visit: Yes (5) Unspecified sleep apnea Status: Acute Assessment and plan: Dr Shane has seen Current Visit: Yes (6) Nephrotic syndrome Status: Acute Assessment and plan: workup ordered, granular casts, proteinuria, renal us, Dr. Rodriguez consulted Current Visit: Yes Hospitalist: Subjective Interval history: concerned about granular and hyaline casts with proteinuria. Does have diabetes will need more diabetic education. Exam - Constitutional Vitals: Period Temp Pulse Resp BP Sys/Sanderson Pulse Ox Last 24 Hr 97.9 F-99.4 F 60-68 16-20 140-166/70-89 96-98 Exam: Heart Rate-[RRR] Lungs-[diminished] GI-[+bs soft, NT] Ext-[2+ edema] Neuro [Motor 5/5], [alert and oriented times 3] psych [normal mood and affect] General [no acute distress] Results - Labs CBC & BMP: 10/25/16 01:40 10/25/16 03:37 Lab Results: I have reviewed the past 24 hour labs - Diagnostic Findings Procedure: Ultrasound: report reviewed by me (echo ef 55% severe right heart pressures pap 60)
--- NOTE | 2016-10-25 21:47 | Ultrasound Report ---
Referring Physician: Christina Alves Exam: US renal Bilateral Date: October 25, 2016 Reason: Worsening renal failure Comparison: None Technique: Grayscale images of both kidneys were obtained. Ultrasound images were captured and stored. Findings: The right kidney measures 10.9 x 3.8 x 3.7 cm, and the left kidney measures 10.9 x 4.3 x 3.7 cm. No hydronephrosis or suspicious renal lesion is identified. The renal parenchyma echogenicity is unremarkable as visualized. Impression: No acute renal process is identified. PROCEDURE INTERPRETED AT [facility] DEPARTMENT OF RADIOLOGY Final Report Signed by: Dr. Linda Canchola
[2016-10-26 06:12] LABS: Basophils % 0.3 % (0.0-0.8); Eosinophils # 0.2 10*3/uL (0.0-0.87); Eosinophils % 2.8 % (0.00-10.9); Hematocrit 31.8 VOL% (42.0-52.0); Hemoglobin 10.5 GM/DL (14.0-18.0); Immature Granulocytes % 0.5 %; Immature Granulocytes Absolute 0.03 #; Lymphocytes # 1.5 10*3/uL (1.4-4.0); Lymphocytes % 23.1 % (21.2-54.2); Mean Corpuscular Hemoglobin 26 PG (27-34); Mean Corpuscular Volume 78.7 FL (87-102); Monocytes # 0.7 10*3/uL (0.11-0.8); Monocytes % 10.1 % (1.7-12.7); Neutrophils # 4.1 10*3/uL (1.4-7.4); Neutrophils % 63.2 % (38.7-73.9); Platelet Count 183 T/CUMM (130-400); Red Blood Count 4.04 MC/CUMM (3.8-5.5); Red Cell Distribution Width 19.9 % (9.3-17.3); White Blood Count 6.4 T/CUMM (4-12)
[2016-10-26 06:33] LABS: Hypochromasia 2+
[2016-10-26 06:49] LABS: Risk Ratio 2.57; VLDL CHOLESTEROL 10.2 MG/DL
[2016-10-26] MEDS: INSULIN REGULAR 100 UNIT/ML SUBCUT SCH ×4 (08:11→21:43)
[2016-10-26 08:29] LABS: Albumin (SPE) 2.8 G/DL (3.2-5.3); Albumin (SPE) Rel % 44.3 %; Alpha 1 (SPE) 0.2 G/DL (0.1-0.4); Alpha 1 (SPE) Rel % 3.8 %; Alpha 2 (SPE) Rel % 15.1 %; Beta (SPE) 0.9 G/DL (0.5-1.1); Beta (SPE) Rel % 14.3 %; Gamma (SPE) 1.4 G/DL (0.7-1.7); Gamma (SPE) Rel % 22.5 %; Total Protein (Chem) 6.4 G/DL (6.4-8.2)
[2016-10-26 08:41] LABS: Immunoglobulin A (Chem) 308 MG/DL (70-400); Immunoglobulin G (Chem) 1470 MG/DL (700-1600); Immunoglobulin M (Chem) 92 MG/DL (40-230)
[2016-10-26] MEDS: CLOPIDOGREL 75 MG TABLET PO SCH (08:49)
[2016-10-26] MEDS: glyBURIDE 5 MG TABLET PO SCH (08:49)
[2016-10-26] MEDS: ASPIRIN EC 81 MG TABLET PO SCH (08:49)
[2016-10-26] MEDS: ISOSORBIDE MONONITRATE 60 MG TABLET PO SCH (08:49)
[2016-10-26] MEDS: METOPROLOL SUCCINATE XL 100 MG TABLET PO SCH (08:49)
[2016-10-26] MEDS: PANTOPRAZOLE 40 MG TABLET PO SCH (08:49)
[2016-10-26] MEDS: SPIRONOLACTONE 25 MG TABLET PO SCH (08:49)
[2016-10-26] MEDS: FUROSEMIDE 40 MG/4 ML VIAL IV SCH ×2 (08:50→15:27)
--- NOTE | 2016-10-26 13:15 | Cardiology Progress Note ---
<Janice Fonseca E - Last Filed: 10/26/16 12:57> Assessment and Plan - Time spent with patient Time spent with patient: Less than 30 minutes (1) Congestive heart failure Status: Acute Assessment and plan: SEE PLAN OF CARE LISTED BELOW. Current Visit: Yes (2) Acute dyspnea Status: Acute Assessment and plan: SEE PLAN OF CARE LISTED BELOW. Current Visit: Yes (3) Anasarca Status: Acute Assessment and plan: SEE PLAN OF CARE LISTED BELOW. Current Visit: Yes (4) Exertional dyspnea Status: Acute Assessment and plan: SEE PLAN OF CARE LISTED BELOW. Current Visit: Yes (5) Elevated LFTs Status: Acute Assessment and plan: SEE PLAN OF CARE LISTED BELOW. Current Visit: Yes (6) Hypertension Status: Chronic Assessment and plan: SEE PLAN OF CARE LISTED BELOW. Current Visit: Yes (7) Diabetes Status: Chronic Assessment and plan: SEE PLAN OF CARE LISTED BELOW. Current Visit: Yes (8) Hyperlipidemia Status: Chronic Assessment and plan: SEE PLAN OF CARE LISTED BELOW. Current Visit: Yes (9) Morbid obesity Status: Chronic Assessment and plan: SEE PLAN OF CARE LISTED BELOW. Current Visit: Yes (10) Peripheral vascular disease Status: Chronic Assessment and plan: SEE PLAN OF CARE LISTED BELOW. Current Visit: Yes (11) Renal insufficiency Status: Acute Assessment and plan: SEE PLAN OF CARE LISTED BELOW. Current Visit: Yes (12) Hypoalbuminemia Status: Acute Assessment and plan: SEE PLAN OF CARE LISTED BELOW. Current Visit: Yes (13) Proteinuria Status: Acute Assessment and plan: SEE PLAN OF CARE LISTED BELOW. Current Visit: Yes (14) Nephrotic syndrome Status: Acute Assessment and plan: SEE PLAN OF CARE LISTED BELOW. 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 TRINIDAD @ [facility] PCP: DR. CAROLYNE ARANA Mr. Ahumada is a 61 year old male with a history of congestive heart failure, peripheral vascular disease, hypertension, diabetes, hyperlipidemia, morbid obesity. Mr. Ahumada presented to our emergency room on 10/24/16 for further evaluation of his bilateral lower extremity edema. He has been followed at [facility] and tells me he was hospitalized in May 2016 with CHF and pneumonia and has been having trouble ever since. He tells me that his edema will improve and then worsen and has fluctuated since May and he wanted to obtain a second opinion regarding causes and treatment options. On admission, his BNP was noted to be 1215 and creatinine was 1.4. He had some trivially elevated troponins with normal CK-MB and CPK. His chest x-ray is suggestive of mild pulmonary edema bilaterally. His echocardiogram reveals an ejection fraction around 55% with right and left atrial enlargement with tricuspid regurgitation and at least moderately elevated right-sided pressures. His lab work reveals hypoalbuminemia and significant proteinuria. This certainly raises the issue of nephrotic syndrome. Dr. Antunez to follow with further plan and addendum. ASSESSMENT/PLAN: 1. CONGESTIVE HEART FAILURE - Echocardiogram revealed EF 55%. He continues to have significant pitting edema that is slowly improving. 2. ACUTE DYSPNEA - Continue current plan of care. O2 PRN. Continue Lasix. Currently breathing comfortably on O2 via NBP. 3. ANASARCA - Patient is currently being treated with diuretics. This is slowly improving. 4. EXERTIONAL DYSPNEA - Continue current medications. He is currently comfortable on O2 via NBP. 5. ELEVATED LFT'S - Hepatitis panel negative. Myeloma profile unremarkable. Will recheck LFT's in AM. 6. HYPERTENSION - Has had several elevated blood pressure readings. Will increase hydralazine to 75mg PO TID. Will monitor. 7. DIABETES - Hospital medicine following. 8. HYPERLIPIDEMIA - Triglycerides 51, cholesterol 216, LDL 119, HDL 84. Continue Lovastatin. 9. MORBID OBESITY 10. PERIPHERAL VASCULAR DISEASE - Followed by Dr. Jayson Parr. 11. RENAL INSUFFICIENCY - Creatinine stable at 1.4. Will follow BMP. 12. HYPOALBUMINEMIA - This may very well be secondary to his proteinuria which is quite significant based on his urinalysis. 13. PROTEINURIA - Etiology of this is unclear but probably has nephrotic syndrome. That certainly would account for much of his findings. Await his 24- hour urine. 14. NEPHROTIC SYNDROME - We are awaiting a 24 hour urine. Nephrology has been consulted. Exam (Progress Note) - Constitutional Vitals: Period Temp Pulse Resp BP Sys/Sanderson Pulse Ox Last 24 Hr 97.5 F-98.3 F 60-66 16-20 138-153/69-87 95-100 Exam: General appearance: Pleasant and cooperative. Morbid obesity, no acute distress. - Head Head exam: Present: normal inspection, normocephalic, atraumatic. Absent: hematoma, laceration - Eye Eye exam: Present: EOMI. Absent: conjunctival injection, nystagmus, periorbital swelling, scleral icterus, laceration to eyelids Pupils: Present: PERRL. Absent: constricted, dilated, fixed, irregular, unequal - ENT ENT exam: Present: normal exam, normal external ear exam - Neck Neck exam: Present: normal inspection. Absent: lymphadenopathy, meningismus, tenderness, thyromegaly - Respiratory Respiratory exam: Present: clear to auscultation bilaterally, decreased breath sounds to bilateral lower bases. Absent: accessory muscle use, chest wall tenderness - Cardiovascular Cardiovascular exam: Present: regular rate and rhythm. Absent: carotid bruit, gallop, JVD, rubs, murmur - GI/Abdominal GI/Abdominal exam: Present: normal bowel sounds, soft, pitting edema to abdominal pannus. Absent: distended, firm, guarding, hernia, mass, tenderness, rebound. - Extremities Exam Extremities exam: Present: normal inspection, normal capillary refill. Upper extremity pulses 2+. Lower extremity pulses 2+. 2+ BLE pitting edema. Absent: calf tenderness -Musculoskeletal Exam Musculoskeletal: Present: No Fluid Collection, No Pain, Normal Range of Motion - Back Exam Back exam: Present: normal inspection. Absent: muscle spasm, vertebral tenderness - Neurological Exam Neurological exam: Present: alert, oriented X3, grossly intact without resting or essential tremor - Psychiatric Psychiatric exam: Present: normal affect, normal mood - Skin Skin exam: Present: normal color, warm, dry, intact. Absent: cyanosis, diaphoretic, rash, urticaria Result/EKG - Labs CBC & BMP: 10/26/16 05:39 10/25/16 03:37 Lab Results: I have reviewed the past 24 hour labs Labs: Laboratory Results - last 24 hr 10/25/16 10/25/16 10/25/16 12:29 12:29 16:53 WBC RBC Hgb Hct MCV MCH MCHC RDW Plt Count Neut % (Auto) Lymph % (Auto) Amador % (Auto) Eos % (Auto) Baso % (Auto) Neut # (Auto) Lymph # (Auto) Amador # (Auto) Eos # (Auto) Baso # (Auto) Immature Gran % Nucleated RBC % Immature Gran # Nucleated RBCs # Hypochromasia ESR Westergren POC Glucose 163 H Hemoglobin A1c Ammonia Total Creatine Kinase C-Reactive Protein B-Natriuretic Peptide Total Protein 6.4 Triglycerides Cholesterol LDL Cholesterol VLDL Cholesterol HDL Cholesterol Heart Disease Risk Ratio Amylase 30 Lipase 161.0 IgG 1470 IgG Total 1470 IgA 308 IgA Total 308 IgM 92 IgM Total 92 Pro Electrophoresis Int Serum Total Protein PEP 6.4 Albumin (PEP) 2.8 L Albumin (relative) 44.3 Pabtu-8-Nfnwxegi 0.2 Xoifi-4-Wyrftpdo rel 3.8 Fdiqk-8-Puhsfgsg 1.0 Hacut-5-Msnjiquw rel 15.1 Ityq-8-Htfyqmbu 0.9 Yftq-6-Nohgaayn rel 14.3 Gamma Globulins 1.4 Gamma Globulins rel 22.5 FLASH Interpretation Hepatitis A IgM Ab Negative Hep Bs Antigen Negative Hep B Core IgM Ab Negative Hepatitis C Antibody Negative 10/25/16 10/25/16 10/25/16 19:08 19:08 19:08 WBC RBC Hgb Hct MCV MCH MCHC RDW Plt Count Neut % (Auto) Lymph % (Auto) Amador % (Auto) Eos % (Auto) Baso % (Auto) Neut # (Auto) Lymph # (Auto) Amador # (Auto) Eos # (Auto) Baso # (Auto) Immature Gran % Nucleated RBC % Immature Gran # Nucleated RBCs # Hypochromasia ESR Westergren 65 H POC Glucose Hemoglobin A1c Ammonia Total Creatine Kinase 176 C-Reactive Protein 1.41 H B-Natriuretic Peptide Total Protein Cancelled Triglycerides Cholesterol LDL Cholesterol VLDL Cholesterol HDL Cholesterol Heart Disease Risk Ratio Amylase Lipase IgG IgG Total IgA IgA Total IgM IgM Total Pro Electrophoresis Int Serum Total Protein PEP Albumin (PEP) Albumin (relative) Aueze-2-Wxpjqpwe Vlpis-9-Uswrxnor rel Olrua-0-Myfgjtvu Mcrbn-8-Yaqrswzm rel Ubjk-1-Rfwlvfnk Jpjf-8-Rphjqiec rel Gamma Globulins Gamma Globulins rel LFASH Interpretation Hepatitis A IgM Ab Hep Bs Antigen Hep B Core IgM Ab Hepatitis C Antibody 10/25/16 10/25/16 10/25/16 19:08 19:08 19:08 WBC RBC Hgb Hct MCV MCH MCHC RDW Plt Count Neut % (Auto) Lymph % (Auto) Amador % (Auto) Eos % (Auto) Baso % (Auto) Neut # (Auto) Lymph # (Auto) Amador # (Auto) Eos # (Auto) Baso # (Auto) Immature Gran % Nucleated RBC % Immature Gran # Nucleated RBCs # Hypochromasia ESR Westergren POC Glucose Hemoglobin A1c 7.5 H Ammonia 25 Total Creatine Kinase C-Reactive Protein B-Natriuretic Peptide 1288 H Total Protein Triglycerides Cholesterol LDL Cholesterol VLDL Cholesterol HDL Cholesterol Heart Disease Risk Ratio Amylase Lipase IgG IgG Total IgA IgA Total IgM IgM Total Pro Electrophoresis Int Serum Total Protein PEP Albumin (PEP) Albumin (relative) Iufhe-9-Qecksmuc Mkajp-7-Ypbxoyxd rel Thrdk-3-Sgcmthgn Vafpt-3-Tbzgpbmq rel Ywty-5-Hsrsmsjz Jgft-0-Citshdhc rel Gamma Globulins Gamma Globulins rel FLASH Interpretation Hepatitis A IgM Ab Hep Bs Antigen Hep B Core IgM Ab Hepatitis C Antibody 10/25/16 10/26/16 10/26/16 20:58 05:39 05:39 WBC 6.4 RBC 4.04 Hgb 10.5 L Hct 31.8 L MCV 78.7 L MCH 26 L MCHC 33.0 RDW 19.9 H Plt Count 183 Neut % (Auto) 63.2 Lymph % (Auto) 23.1 Amador % (Auto) 10.1 Eos % (Auto) 2.8 Baso % (Auto) 0.3 Neut # (Auto) 4.1 Lymph # (Auto) 1.5 Amador # (Auto) 0.7 Eos # (Auto) 0.2 Baso # (Auto) 0.0 Immature Gran % 0.5 Nucleated RBC % 0.0 Immature Gran # 0.03 Nucleated RBCs # 0.00 Hypochromasia 2+ ESR Westergren POC Glucose 126 H Hemoglobin A1c Ammonia Total Creatine Kinase C-Reactive Protein B-Natriuretic Peptide Total Protein Triglycerides 51 Cholesterol 216 H LDL Cholesterol 119.0 VLDL Cholesterol 10.2 HDL Cholesterol 84 H Heart Disease Risk Ratio 2.57 Amylase Lipase IgG IgG Total IgA IgA Total IgM IgM Total Pro Electrophoresis Int Serum Total Protein PEP Albumin (PEP) Albumin (relative) Kujoh-5-Kbtnqxil Sdxga-4-Lyfaczbr rel Ibnnf-7-Eszzjdub Tzbob-3-Muydacil rel Fcax-7-Drpfvfdy Tzkz-3-Rootpqvd rel Gamma Globulins Gamma Globulins rel FLASH Interpretation Hepatitis A IgM Ab Hep Bs Antigen Hep B Core IgM Ab Hepatitis C Antibody 10/26/16 10/26/16 07:36 11:02 WBC RBC Hgb Hct MCV MCH MCHC RDW Plt Count Neut % (Auto) Lymph % (Auto) Amador % (Auto) Eos % (Auto) Baso % (Auto) Neut # (Auto) Lymph # (Auto) Amador # (Auto) Eos # (Auto) Baso # (Auto) Immature Gran % Nucleated RBC % Immature Gran # Nucleated RBCs # Hypochromasia ESR Westergren POC Glucose 138 H 198 H Hemoglobin A1c Ammonia Total Creatine Kinase C-Reactive Protein B-Natriuretic Peptide Total Protein Triglycerides Cholesterol LDL Cholesterol VLDL Cholesterol HDL Cholesterol Heart Disease Risk Ratio Amylase Lipase IgG IgG Total IgA IgA Total IgM IgM Total Pro Electrophoresis Int Serum Total Protein PEP Albumin (PEP) Albumin (relative) Bqtcy-5-Aagjzlcr Xxzry-1-Qavhtucb rel Wlmsn-2-Cjenusft Wzbxw-0-Eyrfwfuf rel Qdzc-5-Zwanpagr Qwwj-8-Knkaggsy rel Gamma Globulins Gamma Globulins rel FLASH Interpretation Hepatitis A IgM Ab Hep Bs Antigen Hep B Core IgM Ab Hepatitis C Antibody - EKG EKG results: interpreted by me <Tye Antunez - Last Filed: 10/26/16 14:27> Assessment and Plan (1) Hypoalbuminemia Status: Acute Current Visit: Yes (2) Proteinuria Status: Acute Current Visit: Yes (3) Nephrotic syndrome Status: Acute Current Visit: Yes Cardiology - PN: Subj Interval history: Patient personally interviewed and examined and chart reviewed. I discussed this case with Janice Fonseca [employer]. I agree with the evaluation and assessment and plan. The patient states he generally feels better. Based on his I&O he was a little negative fluid balance yesterday. We do not have weights no sense 10/24/16. He is evaluation for his proteinuria and possible nephrotic syndrome is underway. His echocardiogram is as noted with left ventricular size and normal ejection fraction 55% with concentric left ventricular hypertrophy. Both atria are moderately dilated without real significant valvular abnormalities except for some mild to moderate tricuspid regurgitation is severely elevated right-sided pressures. These findings certainly would be consistent with underlying pulmonary disease. I suspect his edema is associated with severe pulmonary hypertension and nephrotic syndrome. Evaluation for underlying sleep apnea has been started. At present the the most that we can continue to do is that of diuresis as much as possible. His exam continues to show significant edema May bills softer. Much of it seems to be chronic especially with his chronic subcutaneous changes. His lungs are clear cardiac vascular is regular rate and rhythm. Exam (Progress Note) - Constitutional Vitals: Period Temp Pulse Resp BP Sys/Sanderson Pulse Ox Last 24 Hr 97.5 F-98.3 F 60-66 16-20 138-153/69-87 95-100 Result/EKG - Labs CBC & BMP: 10/26/16 05:39 10/25/16 03:37 Labs: Laboratory Results - last 24 hr 10/25/16 10/25/16 10/25/16 12:29 12:29 16:53 WBC RBC Hgb Hct MCV MCH MCHC RDW Plt Count Neut % (Auto) Lymph % (Auto) Amador % (Auto) Eos % (Auto) Baso % (Auto) Neut # (Auto) Lymph # (Auto) Amador # (Auto) Eos # (Auto) Baso # (Auto) Immature Gran % Nucleated RBC % Immature Gran # Nucleated RBCs # Hypochromasia ESR Westergren POC Glucose 163 H Hemoglobin A1c Ammonia Total Creatine Kinase C-Reactive Protein B-Natriuretic Peptide Total Protein 6.4 Triglycerides Cholesterol LDL Cholesterol VLDL Cholesterol HDL Cholesterol Heart Disease Risk Ratio Amylase 30 Lipase 161.0 IgG 1470 IgG Total 1470 IgA 308 IgA Total 308 IgM 92 IgM Total 92 Pro Electrophoresis Int Serum Total Protein PEP 6.4 Albumin (PEP) 2.8 L Albumin (relative) 44.3 Zcjfp-4-Qixxtmbs 0.2 Ojasf-1-Ynilzjix rel 3.8 Orwpb-4-Eejhulga 1.0 Nfnrh-8-Rbzqvlxu rel 15.1 Sjwi-4-Amszkoxm 0.9 Lblx-8-Bwmeznnl rel 14.3 Gamma Globulins 1.4 Gamma Globulins rel 22.5 FLASH Interpretation Hepatitis A IgM Ab Negative Hep Bs Antigen Negative Hep B Core IgM Ab Negative Hepatitis C Antibody Negative 10/25/16 10/25/16 10/25/16 19:08 19:08 19:08 WBC RBC Hgb Hct MCV MCH MCHC RDW Plt Count Neut % (Auto) Lymph % (Auto) Amador % (Auto) Eos % (Auto) Baso % (Auto) Neut # (Auto) Lymph # (Auto) Amador # (Auto) Eos # (Auto) Baso # (Auto) Immature Gran % Nucleated RBC % Immature Gran # Nucleated RBCs # Hypochromasia ESR Westergren 65 H POC Glucose Hemoglobin A1c Ammonia Total Creatine Kinase 176 C-Reactive Protein 1.41 H B-Natriuretic Peptide Total Protein Cancelled Triglycerides Cholesterol LDL Cholesterol VLDL Cholesterol HDL Cholesterol Heart Disease Risk Ratio Amylase Lipase IgG IgG Total IgA IgA Total IgM IgM Total Pro Electrophoresis Int Serum Total Protein PEP Albumin (PEP) Albumin (relative) Hncea-4-Wotzdnox Gkkpv-7-Rgbqjgdl rel Tgefh-1-Ptcytjab Ckqse-6-Nxgpcqje rel Couh-3-Ihwwiklt Uvbr-9-Bgbvzqho rel Gamma Globulins Gamma Globulins rel FLASH Interpretation Hepatitis A IgM Ab Hep Bs Antigen Hep B Core IgM Ab Hepatitis C Antibody 10/25/16 10/25/16 10/25/16 19:08 19:08 19:08 WBC RBC Hgb Hct MCV MCH MCHC RDW Plt Count Neut % (Auto) Lymph % (Auto) Amador % (Auto) Eos % (Auto) Baso % (Auto) Neut # (Auto) Lymph # (Auto) [place] # (Auto) Eos # (Auto) Baso # (Auto) Immature Gran % Nucleated RBC % Immature Gran # Nucleated RBCs # Hypochromasia ESR Westergren POC Glucose Hemoglobin A1c 7.5 H Ammonia 25 Total Creatine Kinase C-Reactive Protein B-Natriuretic Peptide 1288 H Total Protein Triglycerides Cholesterol LDL Cholesterol VLDL Cholesterol HDL Cholesterol Heart Disease Risk Ratio Amylase Lipase IgG IgG Total IgA IgA Total IgM IgM Total Pro Electrophoresis Int Serum Total Protein PEP Albumin (PEP) Albumin (relative) Kvjpx-2-Yyxwwboa Ftnww-7-Rwypsrdf rel Jkdup-3-Wnahkpjo Bgpat-0-Brhyckoe rel Mqsc-4-Csklnosf Igpd-3-Zxvjbzms rel Gamma Globulins Gamma Globulins rel FLASH Interpretation Hepatitis A IgM Ab Hep Bs Antigen Hep B Core IgM Ab Hepatitis C Antibody 10/25/16 10/26/16 10/26/16 20:58 05:39 05:39 WBC 6.4 RBC 4.04 Hgb 10.5 L Hct 31.8 L MCV 78.7 L MCH 26 L MCHC 33.0 RDW 19.9 H Plt Count 183 Neut % (Auto) 63.2 Lymph % (Auto) 23.1 Amador % (Auto) 10.1 Eos % (Auto) 2.8 Baso % (Auto) 0.3 Neut # (Auto) 4.1 Lymph # (Auto) 1.5 Amador # (Auto) 0.7 Eos # (Auto) 0.2 Baso # (Auto) 0.0 Immature Gran % 0.5 Nucleated RBC % 0.0 Immature Gran # 0.03 Nucleated RBCs # 0.00 Hypochromasia 2+ ESR Westergren POC Glucose 126 H Hemoglobin A1c Ammonia Total Creatine Kinase C-Reactive Protein B-Natriuretic Peptide Total Protein Triglycerides 51 Cholesterol 216 H LDL Cholesterol 119.0 VLDL Cholesterol 10.2 HDL Cholesterol 84 H Heart Disease Risk Ratio 2.57 Amylase Lipase IgG IgG Total IgA IgA Total IgM IgM Total Pro Electrophoresis Int Serum Total Protein PEP Albumin (PEP) Albumin (relative) Iqqhn-4-Pedafoqy Hrpdi-3-Maspipvw rel Fbixb-4-Tvemxtor Gaylo-9-Rregzvig rel Axwd-4-Uikvdiju Jfbs-4-Hwhwdmky rel Gamma Globulins Gamma Globulins rel FLASH Interpretation Hepatitis A IgM Ab Hep Bs Antigen Hep B Core IgM Ab Hepatitis C Antibody 10/26/16 10/26/16 07:36 11:02 WBC RBC Hgb Hct MCV MCH MCHC RDW Plt Count Neut % (Auto) Lymph % (Auto) Amador % (Auto) Eos % (Auto) Baso % (Auto) Neut # (Auto) Lymph # (Auto) [place] # (Auto) Eos # (Auto) Baso # (Auto) Immature Gran % Nucleated RBC % Immature Gran # Nucleated RBCs # Hypochromasia ESR Westergren POC Glucose 138 H 198 H Hemoglobin A1c Ammonia Total Creatine Kinase C-Reactive Protein B-Natriuretic Peptide Total Protein Triglycerides Cholesterol LDL Cholesterol VLDL Cholesterol HDL Cholesterol Heart Disease Risk Ratio Amylase Lipase IgG IgG Total IgA IgA Total IgM IgM Total Pro Electrophoresis Int Serum Total Protein PEP Albumin (PEP) Albumin (relative) Ydvxf-7-Mmlmpwno Odhvm-7-Aqwyhvgm rel Sbpql-2-Mzcakwao Kmbve-8-Rlahrchy rel Kctu-4-Zlldnhgk Mdnt-3-Todpnjjn rel Gamma Globulins Gamma Globulins rel FLASH Interpretation Hepatitis A IgM Ab Hep Bs Antigen Hep B Core IgM Ab Hepatitis C Antibody
--- NOTE | 2016-10-26 13:16 | Sleep Medicine Progress Note ---
Assessment and Plan (1) Unspecified sleep apnea Status: Acute Assessment and plan: We will see if we have an HST device available for evaluation tonight. Current Visit: Yes (2) Congestive heart failure Status: Acute Current Visit: Yes (3) Elevated LFTs Status: Acute Assessment and plan: The patient did have renal ultrasound but there was no comment made on whether there was abdominal ascites. I would recommend abdominal ultrasound to assess liver and for ascites. Current Visit: Yes Sleep Medicine Subjective Interval history: Patient appears to be doing okay. He is eating lunch at present. Spirits are bright and he reports no new problems or issues. He updated me on his medical condition and evaluation for chronic kidney disease. Exam (Progress Note) - Constitutional Vitals: Period Temp Pulse Resp BP Sys/Sanderson Pulse Ox Last 24 Hr 97.5 F-98.3 F 60-66 16-20 138-153/69-87 95-100 Exam: He is alert and responsive. Chest with good air movement no significant wheeze or rhonchi. Cardiac exam reveals a regular rhythm without murmur or gallop. Abdomen soft nontender with positive fluid shift. Extremities with trace edema. Results - Labs CBC & BMP: 10/26/16 05:39 10/25/16 03:37
--- NOTE | 2016-10-26 14:33 | Hospitalist Progress Note ---
Assessment and Plan (1) Congestive heart failure Status: Acute Assessment and plan: cont lasix 40 mg IV every 12 hour, cont metoprolol, hold dale Current Visit: Yes (2) Elevated LFTs Status: Acute Assessment and plan: hepatitis panel negative, could be hepatic congestion, abdominal us Current Visit: Yes (3) Hypertension Status: Chronic Assessment and plan: cont metoprolol, hydralazine, isosorbide mononitrate Current Visit: Yes (4) Diabetes Status: Chronic Assessment and plan: hgb A1c 7.5, diabetic education, cont glyburide Current Visit: Yes (5) Unspecified sleep apnea Status: Acute Assessment and plan: Dr Shane will do hst tonight Current Visit: Yes (6) Nephrotic syndrome Status: Acute Assessment and plan: granular casts, stat cmp, workup ordered, await dr. Rodriguez opinion, renal us done Current Visit: Yes Hospitalist: Subjective Interval history: patient feeling better today, will have renal see him. Told him of my concerns about his kidneys. Dr. Shane has seen him and recommends abdominal us looking for ascites Exam - Constitutional Vitals: Period Temp Pulse Resp BP Sys/Sanderson Pulse Ox Last 24 Hr 97.5 F-98.3 F 60-66 16-20 138-153/69-87 95-100 Exam: Heart Rate-[RRR] Lungs-[diminished] GI-[+bs soft, NT, obese] Ext-[2+ edema] Neuro [Motor 5/5], [alert and oriented times 3] psych [normal mood and affect] General [no acute distress] Results - Labs CBC & BMP: 10/26/16 05:39 10/25/16 03:37 Lab Results: I have reviewed the past 24 hour labs - Diagnostic Findings Procedure: Ultrasound: report reviewed by me (renal no hydro)
--- NOTE | 2016-10-26 15:11 | Nephrology Consult Note ---
History of Present Illness Chief complaint: Swelling and proteinuria History of present illness: Mr. Ahumada is a 61 year old male with significant swelling which has been going on for 4-5 months. He said it had its onset around [place] at which time he took a steroid shot and he relates it to that. He is a long-standing diabetic and says that he has had no problem with his eyes due to diabetes mellitus. He does not recall being told that he had kidney trouble or proteinuria. He has noticed increasing abdominal girth and increasing leg swelling over the last several months. He describes shortness of breath but no PND or orthopnea. His current medicines are reviewed. On physical exam he is a pleasant man able to give a good history. Chest is clear and heart without rub or gallop. He has 3+ peripheral edema and his abdomen is obese but there is a question of a fluid wave. He has a 4+ dipstick proteinuria and a serum albumin of 2.4 creatinine is 1.4. Studies on his urine are pending including measurement of proteinuria Impression likely nephrotic range proteinuria which would almost certainly be due to diabetic nephropathy Our plan is to wait on the results of the 24-hour urine should his proteinuria be in the nephrotic range We likely would not pursue renal biopsy since the yield in the long-standing diabetic is poor for any etiology other than diabetes mellitus. Will follow with you and thank Home Medications Medication Instructions Recorded Confirmed Type Aspirin [Aspirin EC] 81 mg PO DAILY 10/24/16 10/24/16 History Clopidogrel Bisulfate [Clopidogrel] 75 mg PO DAILY 10/24/16 10/24/16 History Enalapril Tab [Vasotec Tab] 20 mg PO BID 10/24/16 10/24/16 History Furosemide [Furosemide] 40 mg PO DAILY 10/24/16 10/24/16 History Hydralazine HCl [Hydralazine HCl] 50 mg PO TID 10/24/16 10/24/16 History Insulin Detemir [Levemir FlexPen] 40 unit SUBCUT BID 10/24/16 10/24/16 History Isosorbide Mononitrate [Isosorbide 60 mg PO DAILY 10/24/16 10/24/16 History Mononitrate ER] Lovastatin [Lovastatin] 20 mg PO DAILY W/SUPPER 10/24/16 10/24/16 History Metformin HCl [Metformin HCl] 1,000 mg PO BID 10/24/16 10/24/16 History Metoprolol Succinate [Metoprolol 100 mg PO DAILY 10/24/16 10/24/16 History Succinate] Ondansetron Odt Tab [Zofran Odt] 4 mg PO Q8H 10/24/16 10/24/16 History Spironolactone [Spironolactone] 25 mg PO DAILY 10/24/16 10/24/16 History Allergies Allergy/AdvReac Type Severity Reaction Status Date / Time No Known Allergies Allergy Unverified 10/24/16 18:12 Medical,Surgical,& Family Hx - Medical History Cardio: History of: CHF, Hypertension, PVD Endocrine: History of: Diabetes Mellitus (IDDM), Dyslipidemia - Surgical History Cardiac Surgeries: Sugical HX of: Cardiac Catheterization (stent 2006) - Family History Family History: Reports;: Family Hypertension - Social History Smoking Status: Never smoker Frequency of Alcohol Use: None Type of Drug Use: None Review of Systems 12 point system: reviewed and no additional remarkable complaints except as stated Exam - Vital Signs Vital signs: Period Temp Pulse Resp BP Sys/Sanderson Pulse Ox Last 24 Hr 97.5 F-98.3 F 60-66 16-20 138-153/69-87 95-100 - General Appearance General appearance: well-developed, well-nourished, appears started age EENT: ATNC Neck: no JVD, no thyromegaly, no carotid bruit, supple Respiratory: no kyphosis, no scoliosis Cardiology: no murmurs, no rub, no gallops, no edema, regular rate, regular rhythm, normal S1, normal S2 Gastrointestinal: obese Integumentary: no rash, warm and dry Neurologic: no focal deficit, no asterixis, alert and oriented x3, reflexes 2+ and symmetric, gait normal, strength 5/5 Musculoskeletal: no deformities, no erythema, no cyanosis, no clubbing Psychiatric: mood/affect appropriate, cooperative Results - Labs CBC & BMP: 10/26/16 05:39 10/25/16 03:37 Assessment and Plan - Time spent with patient Time spent with patient: Greater than 30 minutes (1) Nephrotic syndrome Status: Acute Assessment and plan: Urine studies pending but likely this is due to diabetic nephropathy. Current Visit: Yes (2) Hypertension Status: Chronic Current Visit: Yes (3) Pulmonary hypertension Status: Acute Current Visit: Yes
[2016-10-26] MEDS: hydrALAZINE 25 MG TABLET PO SCH ×2 (15:27→21:36)
[2016-10-26 16:06] LABS: Albumin 2.5 G/DL (3.4-5.0); Bilirubin,Total 0.9 MG/DL (0.2-1.0); Calcium 8.6 MG/DL (8.5-10.1); Osmolality,Calculated 284.4 MOS/KG (273-304); Potassium 4.5 MMOL/L (3.5-5.1); Total Protein 6.5 G/DL (6.4-8.3)
[2016-10-26] MEDS: LOVASTATIN 20 MG TABLET PO SCH (18:07)
[2016-10-26 18:55] LABS: Collection Time,Urine 24 HOURS; Total Volume,Urine 3800 ML (400-2000)
[2016-10-26 19:03] LABS: Total Protein 24 Hr Ur Result 5054 MG/24HR (0-149.1)
[2016-10-26] MEDS: ENOXAPARIN 40 MG/0.4 ML SYRINGE SUBCUT SCH (21:36)
[2016-10-27 05:01] LABS: Basophils % 0.3 % (0.0-0.8); Eosinophils # 0.2 10*3/uL (0.0-0.87); Eosinophils % 2.8 % (0.00-10.9); Hematocrit 30.1 VOL% (42.0-52.0); Immature Granulocytes % 0.3 %; Immature Granulocytes Absolute 0.02 #; Lymphocytes # 1.2 10*3/uL (1.4-4.0); Mean Corpuscular HGB Conc 33.2 GM/DL (32-36); Mean Corpuscular Hemoglobin 26 PG (27-34); Mean Corpuscular Volume 77.6 FL (87-102); Mean Platelet Volume 13.4 FL (9.6-12.0); Monocytes # 0.7 10*3/uL (0.11-0.8); Monocytes % 12.4 % (1.7-12.7); Neutrophils # 3.6 10*3/uL (1.4-7.4); Neutrophils % 63.2 % (38.7-73.9); Platelet Count 181 T/CUMM (130-400); Red Blood Count 3.88 MC/CUMM (3.8-5.5); Red Cell Distribution Width 19.8 % (9.3-17.3); White Blood Count 5.7 T/CUMM (4-12)
[2016-10-27 05:34] LABS: Calcium 8.2 MG/DL (8.5-10.1); Osmolality,Calculated 288.1 MOS/KG (273-304); Potassium 4.2 MMOL/L (3.5-5.1)
[2016-10-27 05:46] LABS: Albumin 2.4 G/DL (3.4-5.0); Calcium 8.3 MG/DL (8.5-10.1); Osmolality,Calculated 286.3 MOS/KG (273-304); Phosphorous 4.2 MG/DL (2.5-4.9); Potassium 4.1 MMOL/L (3.5-5.1)
[2016-10-27 05:47] LABS: Albumin 2.4 G/DL (3.4-5.0); Bilirubin,Direct 0.7 MG/DL (0.0-0.20); Bilirubin,Indirect 0.7 MG/DL (0.0-1.0); Bilirubin,Total 1.4 MG/DL (0.2-1.0); Total Protein 6.2 G/DL (6.4-8.3)
--- NOTE | 2016-10-27 08:05 | Ultrasound Report ---
US abdomen Indication: Ascites Comparison: None Technique: Multiple longitudinal and transverse real-time sonographic images of the abdomen are obtained. Findings: The liver measures 19 cm and demonstrates normal echogenicity without focal abnormality on submitted images. Moderate volume none shadowing debris noted within the bilateral lumen suggestive of sludge. No evidence of significant gallbladder wall thickening. Gallbladder appears upper limits of normal in size. The common bile duct measures 0.5 cm in diameter. There is no evidence of intrahepatic ductal dilatation. The right and left kidneys measure 12.1 cm and 10.3 cm, respectively. There is no evidence of hydronephrosis. Cortical thinning suggested bilaterally. The spleen measures 10.6 cm without focal abnormality. Evaluation of the pancreas limited secondary to bowel gas.. IVC and aorta: Poorly visualized secondary to bowel gas. No evidence of ascites. Bilateral pleural effusions noted. IMPRESSION: No evidence of ascites. Bilateral pleural effusions noted. Hepatomegaly. Moderate volume none shadowing debris noted within the bilateral lumen suggestive of sludge. No evidence of significant gallbladder wall thickening. Gallbladder appears upper limits of normal in size. Consider nuclear medicine hepatobiliary imaging study for further evaluation. Renal atrophy. PROCEDURE INTERPRETED AT [facility] DEPARTMENT OF RADIOLOGY Final Report Signed by: Dr Ez Regalado
--- NOTE | 2016-10-27 08:58 | Nephrology Progress Note ---
Nephrology - PN: Subj Interval history: Mr. Scherer is seen in follow-up of his nephrotic syndrome. He has 5 g of protein per 24 hours. In the face of long-standing diabetes this is almost certainly diabetic nephropathy. He has considerable edema at his current weight. He is taking 40 mg of Lasix IV and is slowly losing weight. I think we can increase the diuretic at least 80 mg IV twice a day and continue to follow his weight. SHERLYN inhibitor or ARB is worth a trial to see if it will decrease proteinuria. We will begin that at a low dose and stop it if there is any significant deterioration in renal function. His abdominal ultrasound did not demonstrate any ascites Exam (PN)-Nephrology - Vital Signs Vital signs: Period Temp Pulse Resp BP Sys/Sanderson Pulse Ox Last 24 Hr 97.8 F-99.1 F 61-74 16-20 147-181/80-87 92-98 - Lab 10/27/16 03:03 10/27/16 03:03 Most recent lab results Calcium 8.3 MG/DL (8.5-10.1) L 10/27/16 03:03 Phosphorus 4.2 MG/DL (2.5-4.9) 10/27/16 03:03 Magnesium 2.0 MG/DL (1.8-2.4) 10/27/16 03:03 Ur Total Protein 24 Hr 5054 MG/24HR (0-149.1) H 10/25/16 18:39 Assessment and Plan (1) Nephrotic syndrome Status: Acute Assessment and plan: Urine studies pending but likely this is due to diabetic nephropathy. Current Visit: Yes (2) Hypertension Status: Chronic Current Visit: Yes (3) Pulmonary hypertension Status: Acute Current Visit: Yes
[2016-10-27 09:23] LABS: 24 Hr Protein (Bench) 5054 MG/24HR (0-149.1); Albumin (UPE) 3689.4 MG/24H; Alpha 1 (UPE) 384.1 MG/24H; Alpha 1 (UPE) Rel % 7.6 %; Alpha 2 (UPE) 242.6 MG/24H; Alpha 2 (UPE) Rel % 4.8 %; Beta (UPE) 232.5 MG/24H; Beta (UPE) Rel % 4.6 %; Gamma (UPE) 505.4 MG/24H
[2016-10-27] MEDS: ASPIRIN EC 81 MG TABLET PO SCH (09:28)
[2016-10-27] MEDS: glyBURIDE 5 MG TABLET PO SCH ×2 (09:28→20:39)
[2016-10-27] MEDS: hydrALAZINE 25 MG TABLET PO SCH ×3 (09:28→20:39)
[2016-10-27] MEDS: ISOSORBIDE MONONITRATE 60 MG TABLET PO SCH (09:28)
[2016-10-27] MEDS: SPIRONOLACTONE 25 MG TABLET PO SCH (09:28)
[2016-10-27] MEDS: CLOPIDOGREL 75 MG TABLET PO SCH (09:28)
[2016-10-27] MEDS: METOPROLOL SUCCINATE XL 100 MG TABLET PO SCH (09:28)
[2016-10-27] MEDS: INSULIN REGULAR 100 UNIT/ML SUBCUT SCH ×4 (09:29→20:39)
[2016-10-27] MEDS: FUROSEMIDE 40 MG/4 ML VIAL IV SCH ×2 (09:29→15:55)
[2016-10-27] MEDS: PANTOPRAZOLE 40 MG TABLET PO SCH (09:30)
--- NOTE | 2016-10-27 12:09 | Sleep Medicine Progress Note ---
Assessment and Plan (1) Unspecified sleep apnea Status: Acute Assessment and plan: This patient does appear to have primary central sleep apnea with evidence of Vikash-Inman respiratory pattern. We will see how he does with BiPAP therapy and follow up his response. By echocardiogram done on this admission on 10 24, he had a normal ejection fraction of 55%. He would be a candidate for ASV therapy if refractory to BiPAP. Current Visit: Yes (2) Congestive heart failure Status: Acute Current Visit: Yes (3) Elevated LFTs Status: Acute Current Visit: Yes Sleep Medicine Subjective Interval history: Patient doing well today. He did undergo HST evaluation. He appears to have severe central sleep apnea. He has large swings in his O2 desaturation going from 94% down into the 70s. We will empirically put him on auto titration BiPAP and monitor his response. Exam (Progress Note) - Constitutional Vitals: Period Temp Pulse Resp BP Sys/Sanderson Pulse Ox Last 24 Hr 97.5 F-99.1 F 61-74 16-20 145-181/80-100 92-98 Exam: He is alert and responsive. Chest with good air movement no significant wheeze or rhonchi. Cardiac exam reveals a regular rhythm without murmur or gallop. Abdomen soft nontender with positive fluid shift. Extremities with trace edema. Results - Labs CBC & BMP: 10/27/16 03:03 10/27/16 03:03 Lab Results: I have reviewed the past 24 hour labs
--- NOTE | 2016-10-27 13:03 | Cardiology Progress Note ---
<Janice Fonseca E - Last Filed: 10/27/16 12:54> Assessment and Plan - Time spent with patient Time spent with patient: Less than 30 minutes (1) Congestive heart failure Status: Acute Assessment and plan: SEE PLAN OF CARE LISTED BELOW. Current Visit: Yes (2) Acute dyspnea Status: Acute Assessment and plan: SEE PLAN OF CARE LISTED BELOW. Current Visit: Yes (3) Anasarca Status: Acute Assessment and plan: SEE PLAN OF CARE LISTED BELOW. Current Visit: Yes (4) Exertional dyspnea Status: Acute Assessment and plan: SEE PLAN OF CARE LISTED BELOW. Current Visit: Yes (5) Elevated LFTs Status: Acute Assessment and plan: SEE PLAN OF CARE LISTED BELOW. Current Visit: Yes (6) Hypertension Status: Chronic Assessment and plan: SEE PLAN OF CARE LISTED BELOW. Current Visit: Yes (7) Diabetes Status: Chronic Assessment and plan: SEE PLAN OF CARE LISTED BELOW. Current Visit: Yes (8) Hyperlipidemia Status: Chronic Assessment and plan: SEE PLAN OF CARE LISTED BELOW. Current Visit: Yes (9) Morbid obesity Status: Chronic Assessment and plan: SEE PLAN OF CARE LISTED BELOW. Current Visit: Yes (10) Peripheral vascular disease Status: Chronic Assessment and plan: SEE PLAN OF CARE LISTED BELOW. Current Visit: Yes (11) Renal insufficiency Status: Acute Assessment and plan: SEE PLAN OF CARE LISTED BELOW. Current Visit: Yes (12) Hypoalbuminemia Status: Acute Assessment and plan: SEE PLAN OF CARE LISTED BELOW. Current Visit: Yes (13) Proteinuria Status: Acute Assessment and plan: SEE PLAN OF CARE LISTED BELOW. Current Visit: Yes (14) Nephrotic syndrome Status: Acute Assessment and plan: SEE PLAN OF CARE LISTED BELOW. Current Visit: Yes (15) Unspecified sleep apnea Status: Acute Assessment and plan: SEE PLAN OF CARE LISTED BELOW. Current Visit: Yes Cardiology - PN: Subj Interval history: D[employer] WORKER: DR. TRINIDAD @ [facility] PCP: DR. CAROLYNE ARANA Mr. Ahumada is a 61 year old male with a history of congestive heart failure, peripheral vascular disease, hypertension, diabetes, hyperlipidemia, morbid obesity. Mr. Ahumada presented to our emergency room on 10/24/16 for further evaluation of his bilateral lower extremity edema. He has been followed at [facility] and tells me he was hospitalized in May 2016 with CHF and pneumonia and has been having trouble ever since. He tells me that his edema will improve and then worsen and has fluctuated since May and he wanted to obtain a second opinion regarding causes and treatment options. On admission, his BNP was noted to be 1215 and creatinine was 1.4. He had some trivially elevated troponins with normal CK-MB and CPK. His chest x-ray is suggestive of mild pulmonary edema bilaterally. His echocardiogram reveals an ejection fraction around 55% with right and left atrial enlargement with tricuspid regurgitation and at least moderately elevated right-sided pressures. His lab work reveals hypoalbuminemia and significant proteinuria and he has been undergoing evaluation for these issues. He reports he is feeling well today. He has been encouraged to get out of the bed and move around and tells me he feels better since he has done this. He continues to have considerable anasarca. Dr. Antunez to follow with further plan and addendum. ASSESSMENT/PLAN: 1. CONGESTIVE HEART FAILURE - Echocardiogram revealed EF 55%. He continues to have significant pitting edema that is slowly improving. 2. ACUTE DYSPNEA - Continue current plan of care. O2 PRN. Continue Lasix. Currently breathing comfortably on O2 via NBP. 3. ANASARCA - Patient is currently being treated with diuretics which have been increased. This is slowly improving. 4. EXERTIONAL DYSPNEA - Continue current medications. He is currently comfortable on O2 via NBP. 5. ELEVATED LFT'S - Hepatitis panel negative. Myeloma profile unremarkable. LFT' s continue to trend down. 6. HYPERTENSION - Has had several elevated blood pressure readings. His hydralazine has been changed to Diovan in favor of placing him on an ARB to hopefully help decrease his proteinuria. 7. DIABETES - Hospital medicine following. 8. HYPERLIPIDEMIA - Triglycerides 51, cholesterol 216, LDL 119, HDL 84. Continue Lovastatin. 9. MORBID OBESITY 10. PERIPHERAL VASCULAR DISEASE - Followed by Dr. Jayson Parr. 11. RENAL INSUFFICIENCY - Creatinine stable at 1.4. Will follow BMP. 12. HYPOALBUMINEMIA - This may very well be secondary to his proteinuria which is quite significant based on his urinalysis. 13. PROTEINURIA - It is felt this is due to diabetic nephropathy. In light of this, his hydralazine has been discontinued and he has been started on Diovan daily as a trial to see if it will decrease his proteinuria. We will continue to monitor his renal function. If this deteriorates, this may need to be discontinued. 14. NEPHROTIC SYNDROME - He was noted to have 5g of protein per 24 hour urine. It is felt this is diabetic nephropathy. 15. SLEEP APNEA - he has undergone HST by sleep medicine and appears to have primary central sleep apnea. It is planned to put him on an auto titration BiPAP and monitor him. Exam (Progress Note) - Constitutional Vitals: Period Temp Pulse Resp BP Sys/Sanderson Pulse Ox Last 24 Hr 97.5 F-99.1 F 61-74 16-20 145-181/80-100 92-98 Exam: General appearance: Pleasant and cooperative. Morbid obesity, no acute distress. - Head Head exam: Present: normal inspection, normocephalic, atraumatic. Absent: hematoma, laceration - Eye Eye exam: Present: EOMI. Absent: conjunctival injection, nystagmus, periorbital swelling, scleral icterus, laceration to eyelids Pupils: Present: PERRL. Absent: constricted, dilated, fixed, irregular, unequal - ENT ENT exam: Present: normal exam, normal external ear exam - Neck Neck exam: Present: normal inspection. Absent: lymphadenopathy, meningismus, tenderness, thyromegaly - Respiratory Respiratory exam: Present: clear to auscultation bilaterally, decreased breath sounds to bilateral lower bases. Absent: accessory muscle use, chest wall tenderness - Cardiovascular Cardiovascular exam: Present: regular rate and rhythm. Absent: carotid bruit, gallop, JVD, rubs, murmur - GI/Abdominal GI/Abdominal exam: Present: normal bowel sounds, soft, pitting edema to abdominal pannus. Absent: distended, firm, guarding, hernia, mass, tenderness, rebound. - Extremities Exam Extremities exam: Present: normal inspection, normal capillary refill. Upper extremity pulses 2+. Lower extremity pulses 2+. 2+ BLE pitting edema. Absent: calf tenderness -Musculoskeletal Exam Musculoskeletal: Present: No Fluid Collection, No Pain, Normal Range of Motion - Back Exam Back exam: Present: normal inspection. Absent: muscle spasm, vertebral tenderness - Neurological Exam Neurological exam: Present: alert, oriented X3, grossly intact without resting or essential tremor - Psychiatric Psychiatric exam: Present: normal affect, normal mood - Skin Skin exam: Present: normal color, warm, dry, intact. Absent: cyanosis, diaphoretic, rash, urticaria Result/EKG - Labs CBC & BMP: 10/27/16 03:03 10/27/16 03:03 Lab Results: I have reviewed the past 24 hour labs Labs: Laboratory Results - last 24 hr 10/25/16 10/25/16 10/26/16 12:29 18:39 15:20 WBC RBC Hgb Hct MCV MCH MCHC RDW Plt Count MPV Neut % (Auto) Lymph % (Auto) [place] % (Auto) Eos % (Auto) Baso % (Auto) Neut # (Auto) Lymph # (Auto) [place] # (Auto) Eos # (Auto) Baso # (Auto) Immature Gran % Nucleated RBC % Immature Gran # Nucleated RBCs # Sodium 140 Potassium 4.5 Chloride 107 Carbon Dioxide 24 Anion Gap 13.5 BUN 24 H Creatinine 1.50 H GFR Calculation 86 BUN/Creatinine Ratio 16.00 Glucose 136 H POC Glucose Calculated Osmolality 284.4 Calcium 8.6 Phosphorus Magnesium Total Bilirubin 0.90 Direct Bilirubin Indirect Bilirubin AST 62 H ALT 88 H Alkaline Phosphatase 401 H Total Protein 6.5 Albumin 2.5 L Globulin 4.0 H Albumin/Globulin Ratio 0.6 L Urine Collection Time 24 Urine Total Volume 3800 H Ur Albumin 24 Hour 73.0 Ur Total Protein 24 Hr 5054 H 5054 H U Qpjuz-8-Knlgfswg 384.1 U Gpxga-3-Qgvarywx (%) 7.6 U Donby-7-Xhkuqkvk 242.6 U Dnhqc-0-Pjttnvxl (%) 4.8 U Beta Globulin 232.5 U Beta Globulin (%) 4.6 U Gamma Globulin 505.4 U Gamma Globulin (%) 10.0 Urine PEP Interpret IgG Total 1470 IgA Total 308 IgM Total 92 Pro Electrophoresis Int Serum Total Protein PEP 6.4 Albumin (PEP) 2.8 L Albumin (relative) 44.3 Dsuyf-5-Yxqpfiur 0.2 Mvjjf-1-Twwpoeph rel 3.8 Vfiuh-3-Jxloemfu 1.0 Yhsvd-3-Ogxwbtwv rel 15.1 Zytq-6-Wziwqxmu 0.9 Slbz-9-Whntrdft rel 14.3 Gamma Globulins 1.4 Gamma Globulins rel 22.5 FLASH Interpretation Urine FLASH Interpret Hepatitis A IgM Ab Negative Hep Bs Antigen Negative Hep B Core IgM Ab Negative Hepatitis C Antibody Negative 10/26/16 10/26/16 10/27/16 15:25 20:01 03:03 WBC RBC Hgb Hct MCV MCH MCHC RDW Plt Count MPV Neut % (Auto) Lymph % (Auto) [place] % (Auto) Eos % (Auto) Baso % (Auto) Neut # (Auto) Lymph # (Auto) [place] # (Auto) Eos # (Auto) Baso # (Auto) Immature Gran % Nucleated RBC % Immature Gran # Nucleated RBCs # Sodium 141 Potassium 4.1 Chloride 106 Carbon Dioxide 27 Anion Gap 12.1 BUN 24 H Creatinine 1.30 GFR Calculation 102 BUN/Creatinine Ratio 18.00 Glucose 134 H POC Glucose 145 H 164 H Calculated Osmolality 286.3 Calcium 8.3 L Phosphorus 4.2 Magnesium Total Bilirubin Direct Bilirubin Indirect Bilirubin AST ALT Alkaline Phosphatase Total Protein Albumin 2.4 L Globulin Albumin/Globulin Ratio Urine Collection Time Urine Total Volume Ur Albumin 24 Hour Ur Total Protein 24 Hr U Difhe-6-Bcfdprff U Voeqp-9-Ainjanac (%) U Oodul-6-Fufctkkf U Vbbuk-0-Idvxxqvm (%) U Beta Globulin U Beta Globulin (%) U Gamma Globulin U Gamma Globulin (%) Urine PEP Interpret IgG Total IgA Total IgM Total Pro Electrophoresis Int Serum Total Protein PEP Albumin (PEP) Albumin (relative) Rhalh-3-Kaxgwbku Tnovj-5-Qwkudehl rel Sibij-7-Aglxpujg Ogkgn-1-Gpytmytp rel Swwv-0-Wrjaberf Ipyo-1-Cekqcrko rel Gamma Globulins Gamma Globulins rel FLASH Interpretation Urine FLASH Interpret Hepatitis A IgM Ab Hep Bs Antigen Hep B Core IgM Ab Hepatitis C Antibody 10/27/16 10/27/16 10/27/16 03:03 03:03 03:03 WBC 5.7 RBC 3.88 Hgb 10.0 L Hct 30.1 L MCV 77.6 L MCH 26 L MCHC 33.2 RDW 19.8 H Plt Count 181 MPV 13.4 H Neut % (Auto) 63.2 Lymph % (Auto) 21.0 L [place] % (Auto) 12.4 Eos % (Auto) 2.8 Baso % (Auto) 0.3 Neut # (Auto) 3.6 Lymph # (Auto) 1.2 L [place] # (Auto) 0.7 Eos # (Auto) 0.2 Baso # (Auto) 0.0 Immature Gran % 0.3 Nucleated RBC % 0.0 Immature Gran # 0.02 Nucleated RBCs # 0.00 Sodium 142 Potassium 4.2 Chloride 106 Carbon Dioxide 26 Anion Gap 14.2 BUN 24 H Creatinine 1.40 H GFR Calculation 94 BUN/Creatinine Ratio 17.00 Glucose 133 H POC Glucose Calculated Osmolality 288.1 Calcium 8.2 L Phosphorus Magnesium 2.0 Total Bilirubin 1.40 H Direct Bilirubin 0.70 H Indirect Bilirubin 0.7 AST 50 H ALT 75 H Alkaline Phosphatase 399 H Total Protein 6.2 L Albumin 2.4 L Globulin Albumin/Globulin Ratio Urine Collection Time Urine Total Volume Ur Albumin 24 Hour Ur Total Protein 24 Hr U Prlqx-2-Ipambosn U Hmncy-6-Ljjbiwic (%) U Ofupn-3-Qynxzquk U Aukwt-8-Flshnayv (%) U Beta Globulin U Beta Globulin (%) U Gamma Globulin U Gamma Globulin (%) Urine PEP Interpret IgG Total IgA Total IgM Total Pro Electrophoresis Int Serum Total Protein PEP Albumin (PEP) Albumin (relative) Gnglu-1-Omeixqkf Fucgl-9-Tesaaszp rel Hdtad-8-Ktthzsxn Cjhxz-8-Hggjkeyp rel Oikp-6-Glmuewts Xigc-5-Mpnzekex rel Gamma Globulins Gamma Globulins rel FLASH Interpretation Urine FLASH Interpret Hepatitis A IgM Ab Hep Bs Antigen Hep B Core IgM Ab Hepatitis C Antibody 10/27/16 10/27/16 08:59 11:36 WBC RBC Hgb Hct MCV MCH MCHC RDW Plt Count MPV Neut % (Auto) Lymph % (Auto) [place] % (Auto) Eos % (Auto) Baso % (Auto) Neut # (Auto) Lymph # (Auto) [place] # (Auto) Eos # (Auto) Baso # (Auto) Immature Gran % Nucleated RBC % Immature Gran # Nucleated RBCs # Sodium Potassium Chloride Carbon Dioxide Anion Gap BUN Creatinine GFR Calculation BUN/Creatinine Ratio Glucose POC Glucose 156 H 190 H Calculated Osmolality Calcium Phosphorus Magnesium Total Bilirubin Direct Bilirubin Indirect Bilirubin AST ALT Alkaline Phosphatase Total Protein Albumin Globulin Albumin/Globulin Ratio Urine Collection Time Urine Total Volume Ur Albumin 24 Hour Ur Total Protein 24 Hr U Xvuuy-9-Wqqbypzr U Yojkx-5-Uehfpzdi (%) U Wckax-0-Jygilbvw U Kneob-6-Tfzjulgz (%) U Beta Globulin U Beta Globulin (%) U Gamma Globulin U Gamma Globulin (%) Urine PEP Interpret IgG Total IgA Total IgM Total Pro Electrophoresis Int Serum Total Protein PEP Albumin (PEP) Albumin (relative) Lfems-2-Gqwlcukc Zvyeh-9-Poqcojab rel Uhxnh-4-Kljxdraj Eytys-0-Anzzhyhx rel Zsga-3-Mrhdjkzh Iico-4-Qoeblmiu rel Gamma Globulins Gamma Globulins rel FLASH Interpretation Urine FLASH Interpret Hepatitis A IgM Ab Hep Bs Antigen Hep B Core IgM Ab Hepatitis C Antibody - EKG EKG results: interpreted by me, sinus rhythm <Tye Antunez - Last Filed: 10/27/16 15:59> Assessment and Plan (1) Hypoalbuminemia Status: Acute Current Visit: Yes (2) Proteinuria Status: Acute Current Visit: Yes (3) Nephrotic syndrome Status: Acute Current Visit: Yes Cardiology - PN: Subj Interval history: Patient personally interviewed and examined and chart reviewed. I discussed case with Janice Fonseca NP. I agree with the evaluation and assessment and plan. This patient has no complaints today. His exam is unchanged. He has had a little less edema. He is TANJA's or in negative volume. His weight is down some. He has significant proteinuria with over 5 g of protein in 24 hours. This patient certainly has nephrotic syndrome is probably the biggest cause of his edema. He has multiple other issues but the primary problem is his nephrosis. This is probably exacerbated secondary to his diabetes. Dr. Rodriguez nephrology is evaluating this and treat this accordingly. This patient's BNP level may still be elevated secondary to multiple factors other than heart failure. He does have elevated right-sided pressures. At this time I think continuing his aggressive diuresis is most appropriate course. His blood pressures may need further therapy. We will continue to monitor. Exam (Progress Note) - Constitutional Vitals: Period Temp Pulse Resp BP Sys/Sanderson Pulse Ox Last 24 Hr 97.5 F-99.1 F 61-74 16-20 145-181/80-100 92-98 Result/EKG - Labs CBC & BMP: 10/27/16 03:03 10/27/16 03:03 Labs: Laboratory Results - last 24 hr 10/25/16 10/25/16 10/26/16 12:29 18:39 15:20 WBC RBC Hgb Hct MCV MCH MCHC RDW Plt Count MPV Neut % (Auto) Lymph % (Auto) [place] % (Auto) Eos % (Auto) Baso % (Auto) Neut # (Auto) Lymph # (Auto) [place] # (Auto) Eos # (Auto) Baso # (Auto) Immature Gran % Nucleated RBC % Immature Gran # Nucleated RBCs # Sodium 140 Potassium 4.5 Chloride 107 Carbon Dioxide 24 Anion Gap 13.5 BUN 24 H Creatinine 1.50 H GFR Calculation 86 BUN/Creatinine Ratio 16.00 Glucose 136 H POC Glucose Calculated Osmolality 284.4 Calcium 8.6 Phosphorus Magnesium Total Bilirubin 0.90 Direct Bilirubin Indirect Bilirubin AST 62 H ALT 88 H Alkaline Phosphatase 401 H Total Protein 6.5 Albumin 2.5 L Globulin 4.0 H Albumin/Globulin Ratio 0.6 L Urine Collection Time 24 Urine Total Volume 3800 H Ur Albumin 24 Hour 73.0 Ur Total Protein 24 Hr 5054 H 5054 H U Jgkzy-0-Dhzfitsu 384.1 U Pkqqh-2-Owrljgqp (%) 7.6 U Plyku-8-Xcbmpnhu 242.6 U Qtarf-7-Buytajvl (%) 4.8 U Beta Globulin 232.5 U Beta Globulin (%) 4.6 U Gamma Globulin 505.4 U Gamma Globulin (%) 10.0 Urine PEP Interpret IgG Total 1470 IgA Total 308 IgM Total 92 Pro Electrophoresis Int Serum Total Protein PEP 6.4 Albumin (PEP) 2.8 L Albumin (relative) 44.3 Hhfdg-8-Peqpbwcf 0.2 Bruhm-3-Xnbaschx rel 3.8 Xqnbk-2-Ofncrcek 1.0 Nshox-0-Lnzotcim rel 15.1 Szmj-2-Scdkwmwc 0.9 Plyw-1-Uepvtugn rel 14.3 Gamma Globulins 1.4 Gamma Globulins rel 22.5 FLASH Interpretation Urine FLASH Interpret Hepatitis A IgM Ab Negative Hep Bs Antigen Negative Hep B Core IgM Ab Negative Hepatitis C Antibody Negative 10/26/16 10/27/16 10/27/16 20:01 03:03 03:03 WBC 5.7 RBC 3.88 Hgb 10.0 L Hct 30.1 L MCV 77.6 L MCH 26 L MCHC 33.2 RDW 19.8 H Plt Count 181 MPV 13.4 H Neut % (Auto) 63.2 Lymph % (Auto) 21.0 L [place] % (Auto) 12.4 Eos % (Auto) 2.8 Baso % (Auto) 0.3 Neut # (Auto) 3.6 Lymph # (Auto) 1.2 L [place] # (Auto) 0.7 Eos # (Auto) 0.2 Baso # (Auto) 0.0 Immature Gran % 0.3 Nucleated RBC % 0.0 Immature Gran # 0.02 Nucleated RBCs # 0.00 Sodium 141 Potassium 4.1 Chloride 106 Carbon Dioxide 27 Anion Gap 12.1 BUN 24 H Creatinine 1.30 GFR Calculation 102 BUN/Creatinine Ratio 18.00 Glucose 134 H POC Glucose 164 H Calculated Osmolality 286.3 Calcium 8.3 L Phosphorus 4.2 Magnesium Total Bilirubin Direct Bilirubin Indirect Bilirubin AST ALT Alkaline Phosphatase Total Protein Albumin 2.4 L Globulin Albumin/Globulin Ratio Urine Collection Time Urine Total Volume Ur Albumin 24 Hour Ur Total Protein 24 Hr U Qdigl-3-Twllcpjo U Zhcfd-1-Uhhbazrb (%) U Dxezf-0-Dmgveugx U Gumqw-4-Fmrktdah (%) U Beta Globulin U Beta Globulin (%) U Gamma Globulin U Gamma Globulin (%) Urine PEP Interpret IgG Total IgA Total IgM Total Pro Electrophoresis Int Serum Total Protein PEP Albumin (PEP) Albumin (relative) Ndfnd-0-Trlkfkri Cokct-1-Injibnkb rel Rlnrb-7-Myojrinv Csisp-8-Cyxbagzc rel Pmyu-9-Powdyybf Kzpy-4-Bkutjmwa rel Gamma Globulins Gamma Globulins rel FLASH Interpretation Urine FLASH Interpret Hepatitis A IgM Ab Hep Bs Antigen Hep B Core IgM Ab Hepatitis C Antibody 10/27/16 10/27/16 10/27/16 03:03 03:03 08:59 WBC RBC Hgb Hct MCV MCH MCHC RDW Plt Count MPV Neut % (Auto) Lymph % (Auto) [place] % (Auto) Eos % (Auto) Baso % (Auto) Neut # (Auto) Lymph # (Auto) [place] # (Auto) Eos # (Auto) Baso # (Auto) Immature Gran % Nucleated RBC % Immature Gran # Nucleated RBCs # Sodium 142 Potassium 4.2 Chloride 106 Carbon Dioxide 26 Anion Gap 14.2 BUN 24 H Creatinine 1.40 H GFR Calculation 94 BUN/Creatinine Ratio 17.00 Glucose 133 H POC Glucose 156 H Calculated Osmolality 288.1 Calcium 8.2 L Phosphorus Magnesium 2.0 Total Bilirubin 1.40 H Direct Bilirubin 0.70 H Indirect Bilirubin 0.7 AST 50 H ALT 75 H Alkaline Phosphatase 399 H Total Protein 6.2 L Albumin 2.4 L Globulin Albumin/Globulin Ratio Urine Collection Time Urine Total Volume Ur Albumin 24 Hour Ur Total Protein 24 Hr U Qwgxn-1-Pommnyzx U Oroon-8-Ziggyfdj (%) U Mltyy-3-Uxjqrnob U Cnwfb-1-Gnwwodpg (%) U Beta Globulin U Beta Globulin (%) U Gamma Globulin U Gamma Globulin (%) Urine PEP Interpret IgG Total IgA Total IgM Total Pro Electrophoresis Int Serum Total Protein PEP Albumin (PEP) Albumin (relative) Aovcz-6-Qjywzwvf Hvrtw-7-Flqsjulr rel Kcill-2-Djsqztjt Wyaqk-7-Ryhvjqnp rel Wunv-1-Xqdhsbzw Nmsw-3-Wrrfnujq rel Gamma Globulins Gamma Globulins rel FLASH Interpretation Urine FLASH Interpret Hepatitis A IgM Ab Hep Bs Antigen Hep B Core IgM Ab Hepatitis C Antibody 10/27/16 11:36 WBC RBC Hgb Hct MCV MCH MCHC RDW Plt Count MPV Neut % (Auto) Lymph % (Auto) [place] % (Auto) Eos % (Auto) Baso % (Auto) Neut # (Auto) Lymph # (Auto) [place] # (Auto) Eos # (Auto) Baso # (Auto) Immature Gran % Nucleated RBC % Immature Gran # Nucleated RBCs # Sodium Potassium Chloride Carbon Dioxide Anion Gap BUN Creatinine GFR Calculation BUN/Creatinine Ratio Glucose POC Glucose 190 H Calculated Osmolality Calcium Phosphorus Magnesium Total Bilirubin Direct Bilirubin Indirect Bilirubin AST ALT Alkaline Phosphatase Total Protein Albumin Globulin Albumin/Globulin Ratio Urine Collection Time Urine Total Volume Ur Albumin 24 Hour Ur Total Protein 24 Hr U Lepoq-9-Boffautv U Inhti-7-Rbkgctpf (%) U Cblrj-9-Nkpflvsq U Pxqbt-7-Yiuwyirl (%) U Beta Globulin U Beta Globulin (%) U Gamma Globulin U Gamma Globulin (%) Urine PEP Interpret IgG Total IgA Total IgM Total Pro Electrophoresis Int Serum Total Protein PEP Albumin (PEP) Albumin (relative) Daums-1-Ljgdtzhb Sgjsh-8-Nwlomtrg rel Rnkog-0-Gqcyetrw Rywty-3-Yspwfvfx rel Aucg-6-Fsftivbs Daeq-9-Ksryrfzo rel Gamma Globulins Gamma Globulins rel FLASH Interpretation Urine FLASH Interpret Hepatitis A IgM Ab Hep Bs Antigen Hep B Core IgM Ab Hepatitis C Antibody
--- NOTE | 2016-10-27 16:48 | Hospitalist Progress Note ---
Assessment and Plan (1) Congestive heart failure Status: Acute Assessment and plan: cont lasix 40 mg IV every 12 hour, cont metoprolol, discussed case with Dr. Jarred Rodriguez and he does want to try an SHERLYN inhibitor decrease proteinuria. Current Visit: Yes (2) Elevated LFTs Status: Acute Assessment and plan: Patient does have hepatomegaly most likely due to hepatic congestion, no ascites despite large abdomen Current Visit: Yes (3) Hypertension Status: Chronic Assessment and plan: Not controlled cont metoprolol, hydralazine increased to 75 mg p.o. 3 times daily, isosorbide mononitrate, Dr. Rodriguez started Diovan today. Current Visit: Yes (4) Diabetes Status: Chronic Assessment and plan: hgb A1c 7.5, diabetic education, increase glyburide to 5 mg po bid Current Visit: Yes (5) Unspecified sleep apnea Status: Acute Assessment and plan: Dr Shane evaluated HST and shows that patient does have a primary central sleep apnea. He will need BiPAP therapy. Current Visit: Yes (6) Nephrotic syndrome Status: Acute Assessment and plan: Consistent with nephrotic syndrome, Dr. Rodriguez it started Diovan to decrease proteinuria Current Visit: Yes Hospitalist: Subjective Interval history: Patient doing better today. We have encouraged him to ambulate today. He most likely can go home tomorrow. Exam - Constitutional Vitals: Period Temp Pulse Resp BP Sys/Sanderson Pulse Ox Last 24 Hr 97.5 F-99.1 F 64-74 16-20 145-166/80-100 92-98 Results - Labs CBC & BMP: 10/27/16 03:03 10/27/16 03:03 Lab Results: I have reviewed the past 24 hour labs - Diagnostic Findings Procedure: Ultrasound: report reviewed by me (hepatomegaly, bilateral pleural effusion)
[2016-10-27] MEDS: LOVASTATIN 20 MG TABLET PO SCH (16:55)
[2016-10-27] MEDS: ENOXAPARIN 40 MG/0.4 ML SYRINGE SUBCUT SCH (20:39)
[2016-10-28 04:43] LABS: Basophils % 0.4 % (0.0-0.8); Eosinophils # 0.2 10*3/uL (0.0-0.87); Eosinophils % 3.1 % (0.00-10.9); Hematocrit 29.4 VOL% (42.0-52.0); Hemoglobin 9.7 GM/DL (14.0-18.0); Immature Granulocytes % 0.2 %; Immature Granulocytes Absolute 0.01 #; Lymphocytes # 1.2 10*3/uL (1.4-4.0); Lymphocytes % 21.8 % (21.2-54.2); Mean Corpuscular Hemoglobin 26 PG (27-34); Mean Corpuscular Volume 77.8 FL (87-102); Monocytes # 0.7 10*3/uL (0.11-0.8); Monocytes % 12.1 % (1.7-12.7); Neutrophils # 3.4 10*3/uL (1.4-7.4); Neutrophils % 62.4 % (38.7-73.9); Platelet Count 185 T/CUMM (130-400); Red Blood Count 3.78 MC/CUMM (3.8-5.5); Red Cell Distribution Width 19.5 % (9.3-17.3); White Blood Count 5.5 T/CUMM (4-12)
[2016-10-28 05:12] LABS: Albumin 2.3 G/DL (3.4-5.0); Calcium 8.1 MG/DL (8.5-10.1); Calcium 8.6 MG/DL (8.5-10.1); Magnesium 1.8 MG/DL (1.8-2.4); Osmolality,Calculated 282.3 MOS/KG (273-304); Phosphorous 4.2 MG/DL (2.5-4.9); Potassium 3.8 MMOL/L (3.5-5.1)
[2016-10-28 07:50] VITALS: BP 146/67
[2016-10-28] MEDS: ISOSORBIDE MONONITRATE 60 MG TABLET PO SCH (08:57)
[2016-10-28] MEDS: CLOPIDOGREL 75 MG TABLET PO SCH (08:57)
[2016-10-28] MEDS: ASPIRIN EC 81 MG TABLET PO SCH (08:57)
[2016-10-28] MEDS: hydrALAZINE 25 MG TABLET PO SCH (08:58)
[2016-10-28] MEDS: glyBURIDE 5 MG TABLET PO SCH (08:58)
[2016-10-28] MEDS: PANTOPRAZOLE 40 MG TABLET PO SCH (08:58)
[2016-10-28] MEDS: METOPROLOL SUCCINATE XL 100 MG TABLET PO SCH (08:58)
[2016-10-28] MEDS: SPIRONOLACTONE 25 MG TABLET PO SCH (08:58)
[2016-10-28] MEDS: FUROSEMIDE 40 MG/4 ML VIAL IV SCH (08:58)
[2016-10-28] MEDS: INSULIN REGULAR 100 UNIT/ML SUBCUT SCH (08:59)
[2016-10-28] MEDS ORDERED: VALSARTAN 80 MG TABLET PO SCH (09:00)
--- NOTE | 2016-10-28 10:32 | Discharge Summary ---
Hospital Course - Hospital Course Hospital Course: 61-year-old -Mexican male with a history of hypertension diabetes and congestive heart failure presents with worsening anasarca and shortness of breath. His primary purchasing supervisor is Dr. Long at [facility]. Patient was placed on IV Lasix 80 mg IV twice a day. UA showed granular casts suggestive of renal disease. Dr. Jarred Rodriguez was consulted and feels the patient has nephrotic syndrome secondary to diabetes. Patient has hypertension which is fairly well controlled on multiple medications but we increased his hydralazine to 75 mg 3 times a day. His hemoglobin A1c is 7.5 and he will be continued on insulin. His 24-hour urine shows proteinuria of over 5 g. Patient has elevated liver enzymes which need to be continuously monitored. His hepatitis panel is negative. His liver shows enlargement of the liver due to fatty liver versus hepatic congestion. Patient does have obstructive sleep apnea. Dr. Shane has seen him and feels that he has a a primary central sleep apnea with Haritha Inman respiratory pattern. He recommends BiPAP therapy at night versus ASV. Patient will be discharged home today with follow-up with Dr. Julianne Fermin, Dr. Shane, Dr. Long, and Dr. Rodriguez. - Time spent with patient Time with patient DS: Greater than 30 minutes (60 min) Diagnosis - Discharge Diagnosis (1) Congestive heart failure Status: Acute (2) Elevated LFTs Status: Acute (3) Hypertension Status: Chronic (4) Diabetes Status: Chronic (5) Unspecified sleep apnea Status: Acute (6) Nephrotic syndrome Status: Acute Discharge Plan - Discharge Data Disposition: Disch To Home/Self Care Condition at Discharge: Stable Discharge Diet: diabetic diet Activity: resume usual activities as tolerated Hygiene: no restrictions Weight Bearing at Discharge: full weight bearing - Discharge Medications New Valsartan [Diovan] 80 mg PO DAILY #30 tablet Continue Clopidogrel Bisulfate [Clopidogrel] 75 mg PO DAILY Aspirin [Aspirin EC] 81 mg PO DAILY Lovastatin 20 mg PO DAILY W/SUPPER Isosorbide Mononitrate [Isosorbide Mononitrate ER] 60 mg PO DAILY Metoprolol Succinate 100 mg PO DAILY Ondansetron Odt Tab [Zofran Odt] 4 mg PO Q8H Changed Furosemide 40 mg PO BID #60 tablet Hydralazine HCl 75 mg PO TID #90 tablet Spironolactone 25 mg PO BID #60 tablet Insulin Detemir [Levemir FlexPen] 20 unit SUBCUT BID #0 Discontinued Metformin HCl [Metformin HCl] 1,000 mg PO BID Enalapril Tab [Vasotec Tab] 20 mg PO BID - Follow Up or Referral Follow Up: Dr Jose Raul [Other] - 2 Weeks Valerie Shane MD [Physician] - 1 Week Mynor Rodriguez MD [Physician] - [address] Leann [Other] - 2 Weeks - Forms/Instructions Exam - Constitutional Vitals: Period Temp Pulse Resp BP Sys/Sanderson Pulse Ox Last 24 Hr 96.6 F-97.9 F 64-75 16-20 145-163/67-90 93-98 General appearance: normal weight, no acute distress - Respiratory Respiratory exam: Present: clear to auscultation bilaterally. Absent: rhonchi, wheezes - Cardiovascular Cardiovascular exam: Present: regular rate and rhythm - GI/Abdominal GI/Abdominal exam: Present: normal bowel sounds, soft. Absent: tenderness - Extremities Exam Extremities exam: Present: edema Discharge Results Procedures and tests throughout hospitalization: Pending Orders 10/25/16 18:45 Osmolality,Urine Stat 10/25/16 19:08 C-Reactive Protein Inflamm Stat Creatine Kinase Total Stat Osmolality, Serum Stat 10/29/16 04:00 Basic Metabolic Panel w/Mg IN AM Comp Blood Count Auto Diff IN AM Renal Function Panel IN AM 10/30/16 04:00 Basic Metabolic Panel w/Mg IN AM Comp Blood Count Auto Diff IN AM Labs on day of discharge: Labs from last 24 hours 10/28/16 10/28/16 10/28/16 07:36 03:39 03:39 WBC 5.5 RBC 3.78 L Hgb 9.7 L Hct 29.4 L MCV 77.8 L MCH 26 L MCHC 33.0 RDW 19.5 H Plt Count 185 MPV 13.0 H Neut % (Auto) 62.4 Lymph % (Auto) 21.8 [place] % (Auto) 12.1 Eos % (Auto) 3.1 Baso % (Auto) 0.4 Neut # (Auto) 3.4 Lymph # (Auto) 1.2 L [place] # (Auto) 0.7 Eos # (Auto) 0.2 Baso # (Auto) 0.0 Immature Gran % 0.2 Nucleated RBC % 0.0 Immature Gran # 0.01 Nucleated RBCs # 0.00 Sodium 141 Potassium 3.8 Chloride 104 Carbon Dioxide 28 Anion Gap 12.8 BUN 21 H Creatinine 1.10 GFR Calculation 125 BUN/Creatinine Ratio 19.00 Glucose 80 POC Glucose 80 Calculated Osmolality 282.3 Calcium 8.1 L Phosphorus Magnesium 1.8 Albumin Ur Albumin 24 Hour Ur Total Protein 24 Hr U Ubwjd-0-Szyghudl U Fvluo-6-Tdsdihfc (%) U Ewemx-3-Mfzqccxt U Yzmtw-8-Iwkhmfvo (%) U Beta Globulin U Beta Globulin (%) U Gamma Globulin U Gamma Globulin (%) Urine PEP Interpret IgG Total IgA Total IgM Total Pro Electrophoresis Int Serum Total Protein PEP Albumin (PEP) Albumin (relative) Frmqe-4-Acsregak Tjrso-0-Cfgiolks rel Ahuvw-9-Gacvizqs Kovpu-8-Kowwebqn rel Mmgr-5-Lsmoelsz Ndgn-3-Jxhhrhnm rel Gamma Globulins Gamma Globulins rel FLASH Interpretation Urine FLASH Interpret Hepatitis A IgM Ab Hep Bs Antigen Hep B Core IgM Ab Hepatitis C Antibody 10/28/16 10/27/16 10/27/16 03:39 19:43 15:34 WBC RBC Hgb Hct MCV MCH MCHC RDW Plt Count MPV Neut % (Auto) Lymph % (Auto) [place] % (Auto) Eos % (Auto) Baso % (Auto) Neut # (Auto) Lymph # (Auto) [place] # (Auto) Eos # (Auto) Baso # (Auto) Immature Gran % Nucleated RBC % Immature Gran # Nucleated RBCs # Sodium 141 Potassium 3.8 Chloride 105 Carbon Dioxide 29 Anion Gap 10.8 BUN 22 H Creatinine 1.20 GFR Calculation 112 BUN/Creatinine Ratio 18.00 Glucose 77 POC Glucose 203 H 252 H Calculated Osmolality 282.3 Calcium 8.6 Phosphorus 4.2 Magnesium Albumin 2.3 L Ur Albumin 24 Hour Ur Total Protein 24 Hr U Bdrxn-9-Hyantqbk U Hnbwa-3-Wubcmxet (%) U Qlgco-4-Xueqxvlk U Xlvqx-9-Fmszaugb (%) U Beta Globulin U Beta Globulin (%) U Gamma Globulin U Gamma Globulin (%) Urine PEP Interpret IgG Total IgA Total IgM Total Pro Electrophoresis Int Serum Total Protein PEP Albumin (PEP) Albumin (relative) Bkzek-4-Jxruzohk Djqkq-0-Imszqiyk rel Xslae-8-Zgcwsnee Kkfdf-0-Wodxdnkt rel Aeuv-6-Fbawxnor Kzmm-3-Qabvmaha rel Gamma Globulins Gamma Globulins rel FLASH Interpretation Urine FLASH Interpret Hepatitis A IgM Ab Hep Bs Antigen Hep B Core IgM Ab Hepatitis C Antibody 10/27/16 10/25/16 11:36 12:29 WBC RBC Hgb Hct MCV MCH MCHC RDW Plt Count MPV Neut % (Auto) Lymph % (Auto) [place] % (Auto) Eos % (Auto) Baso % (Auto) Neut # (Auto) Lymph # (Auto) [place] # (Auto) Eos # (Auto) Baso # (Auto) Immature Gran % Nucleated RBC % Immature Gran # Nucleated RBCs # Sodium Potassium Chloride Carbon Dioxide Anion Gap BUN Creatinine GFR Calculation BUN/Creatinine Ratio Glucose POC Glucose 190 H Calculated Osmolality Calcium Phosphorus Magnesium Albumin Ur Albumin 24 Hour 73.0 Ur Total Protein 24 Hr 5054 H U Ahpnz-4-Wpvibrct 384.1 U Ivnkf-7-Xcxdzoue (%) 7.6 U Laqzm-3-Yjnsrcdx 242.6 U Hnevv-7-Ucgsxpyv (%) 4.8 U Beta Globulin 232.5 U Beta Globulin (%) 4.6 U Gamma Globulin 505.4 U Gamma Globulin (%) 10.0 Urine PEP Interpret IgG Total 1470 IgA Total 308 IgM Total 92 Pro Electrophoresis Int Serum Total Protein PEP 6.4 Albumin (PEP) 2.8 L Albumin (relative) 44.3 Sfcss-8-Pyeoojsy 0.2 Sgnxg-3-Heogisvh rel 3.8 Fftda-7-Qelnpoon 1.0 Nedeb-1-Ojksyaqp rel 15.1 Tyzu-4-Qzqenwwz 0.9 Pbnh-8-Ujskfnhg rel 14.3 Gamma Globulins 1.4 Gamma Globulins rel 22.5 FLASH Interpretation Urine FLASH Interpret Hepatitis A IgM Ab Negative Hep Bs Antigen Negative Hep B Core IgM Ab Negative Hepatitis C Antibody Negative DS: Provider Date of admission: 10/24/16 21:27 Primary care physician: . No PCP Attending physician on admission: Tye Watts MD Consults: 10/24/16 22:22 Consult to Physician [CONS] Routine Comment: chf Consulting Provider: Tye Antunez Consult to Specialist Group: Cardiology When should Consulting Provider be notified: In am Person Notified: TOÑA Date Notified: 10/25/16 Time Notified: 07:45 10/24/16 23:46 Consult to Pastoral Services [CONS] Routine Comment: Pastoral Screen: Request Radiologic Technology Teacher Visit Pastoral Screen Source of Request: Patient Family 10/25/16 13:21 Consult to Case Mgmt/Social Srvs [CONS] Routine Reason for Case Mgmt/Social Srvs: Discharge Planning Equipment Home Health Consult Comment: cardiopulmonary HH @ D/C, Pt requests PRN home O2 & disability assistance 10/25/16 13:23 Consult to Sleep Center [CONS] Routine Reason for Sleep Center: Sleep Center Physician Consult Comment: nightly snoring, obesity, HTN, CHF, questionable hx CAD 10/25/16 18:23 Consult to Physician [CONS] Routine Comment: protienurea, granular casts and hyaline casts Consulting Provider: Mynor Rodriguez Consult to Specialist Group: Nephrology When should Consulting Provider be notified: In am Person Notified: IAM Date Notified: 10/26/16 Time Notified: 09:00 10/25/16 18:33 Consult to Physician [CONS] Routine Comment: Consulting Provider: 10/25/16 18:45 Consult to Physician [CONS] Routine Comment: Consulting Provider: Mynor Rodriguez Consult to Specialist Group: Nephrology Person Notified: IAM Date Notified: 10/26/16 Time Notified: 09:00 Discharging clinician: Christina Alves MD
--- NOTE | 2016-10-28 10:37 | Cardiology Progress Note ---
Assessment and Plan (1) Hypoalbuminemia Status: Acute Assessment and plan: This is from his nephrotic syndrome. This is certainly contributing to his edema. Current Visit: Yes (2) Proteinuria Status: Acute Assessment and plan: He has severe proteinuria. Current Visit: Yes (3) Nephrotic syndrome Status: Acute Assessment and plan: This is probably the cause of his edema and probably associated and secondary to diabetic nephropathy. Nephrology is following. Current Visit: Yes Cardiology - PN: Subj Interval history: Patient generally is doing well today. He has no specific complaints and feels better. He is continue his diuresis. He had a negative fluid balance yesterday and already has a negative fluid balance today. His weight though does not reflect any fluid loss. Exam though does. His lab work reveals his H& H to be stable. Chemistries are stable as is his BUN and creatinine. Exam (Progress Note) - Constitutional Vitals: Period Temp Pulse Resp BP Sys/Sanderson Pulse Ox Last 24 Hr 96.6 F-97.9 F 64-75 16-20 145-163/67-90 93-98 Exam: General appearance: normal weight, no acute distress HEENT exam: normal inspection, atraumatic Neck exam: normal inspection no JVD. No carotid bruit. Trachea is in midline Respiratory/lungs exam: clear to auscultation bilaterally good air movement. Cardiovascular exam: regular rate and rhythm, no murmur or gallop or rub. No precordial lift. Chest wall exam: nontender GI/Abdominal exam: normal bowel sounds, soft, nontender, no abdominal bruits or pulsatile masses. Extremeties/musculoskeletal: Edema is better. Neurological exam: alert, oriented X3, no focal deficits Psychiatric exam: normal affect, normal mood. Cognitive function is grossly normal. Skin exam: normal color, warm Result/EKG - Labs CBC & BMP: 10/28/16 03:39 10/28/16 03:39 Lab Results: I have reviewed the past 24 hour labs Labs: Laboratory Results - last 24 hr 10/27/16 10/27/16 10/27/16 11:36 15:34 19:43 WBC RBC Hgb Hct MCV MCH MCHC RDW Plt Count MPV Neut % (Auto) Lymph % (Auto) [place] % (Auto) Eos % (Auto) Baso % (Auto) Neut # (Auto) Lymph # (Auto) [place] # (Auto) Eos # (Auto) Baso # (Auto) Immature Gran % Nucleated RBC % Immature Gran # Nucleated RBCs # Sodium Potassium Chloride Carbon Dioxide Anion Gap BUN Creatinine GFR Calculation BUN/Creatinine Ratio Glucose POC Glucose 190 H 252 H 203 H Calculated Osmolality Calcium Phosphorus Magnesium Albumin 10/28/16 10/28/16 10/28/16 03:39 03:39 03:39 WBC 5.5 RBC 3.78 L Hgb 9.7 L Hct 29.4 L MCV 77.8 L MCH 26 L MCHC 33.0 RDW 19.5 H Plt Count 185 MPV 13.0 H Neut % (Auto) 62.4 Lymph % (Auto) 21.8 [place] % (Auto) 12.1 Eos % (Auto) 3.1 Baso % (Auto) 0.4 Neut # (Auto) 3.4 Lymph # (Auto) 1.2 L [place] # (Auto) 0.7 Eos # (Auto) 0.2 Baso # (Auto) 0.0 Immature Gran % 0.2 Nucleated RBC % 0.0 Immature Gran # 0.01 Nucleated RBCs # 0.00 Sodium 141 141 Potassium 3.8 3.8 Chloride 105 104 Carbon Dioxide 29 28 Anion Gap 10.8 12.8 BUN 22 H 21 H Creatinine 1.20 1.10 GFR Calculation 112 125 BUN/Creatinine Ratio 18.00 19.00 Glucose 77 80 POC Glucose Calculated Osmolality 282.3 282.3 Calcium 8.6 8.1 L Phosphorus 4.2 Magnesium 1.8 Albumin 2.3 L 10/28/16 07:36 WBC RBC Hgb Hct MCV MCH MCHC RDW Plt Count MPV Neut % (Auto) Lymph % (Auto) [place] % (Auto) Eos % (Auto) Baso % (Auto) Neut # (Auto) Lymph # (Auto) [place] # (Auto) Eos # (Auto) Baso # (Auto) Immature Gran % Nucleated RBC % Immature Gran # Nucleated RBCs # Sodium Potassium Chloride Carbon Dioxide Anion Gap BUN Creatinine GFR Calculation BUN/Creatinine Ratio Glucose POC Glucose 80 Calculated Osmolality Calcium Phosphorus Magnesium Albumin - Impressions Impressions: Telemetry with normal sinus rhythm.
== END 2016-10-28 13:07 | disposition home or self-care (01) | DRG 292 ==
LOC: N.ED 18:00 → SUATTDRO 21:27 → N.EDINP 21:27 → N.TELEN 22:16
PROVIDERS: ADMIT Internal Medicine; ATTEND Internal Medicine

== ENCOUNTER 2018-09-28 13:48 | Inpatient (IN) ==
[2018-09-28 14:20] LABS: Basophils % 0.3 % (0.0-0.8); Eosinophils % 0.4 % (0.00-10.9); Hematocrit 33.6 VOL% (42.0-52.0); Hemoglobin 10.4 GM/DL (14.0-18.0); Immature Granulocytes % 0.4 %; Immature Granulocytes Absolute 0.03 #; Lymphocytes # 0.9 10*3/uL (1.4-4.0); Lymphocytes % 12.1 % (21.2-54.2); Mean Corpuscular Hemoglobin 27 PG (27-34); Mean Corpuscular Volume 85.7 FL (87-102); Mean Platelet Volume 10.9 FL (9.6-12.0); Monocytes # 0.4 10*3/uL (0.11-0.8); Monocytes % 5.7 % (1.7-12.7); Neutrophils # 5.9 10*3/uL (1.4-7.4); Neutrophils % 81.1 % (38.7-73.9); Platelet Count 267 T/CUMM (130-400); Red Blood Count 3.92 MC/CUMM (3.8-5.5); Red Cell Distribution Width 14.8 % (9.3-17.3); White Blood Count 7.2 T/CUMM (4-12)
[2018-09-28 14:38] LABS: PT Patient Result 11.1 SECS
[2018-09-28 14:55] LABS: Albumin 3.3 G/DL (3.4-5.0); Bilirubin,Total 0.4 MG/DL (0.2-1.0); Calcium 8.7 MG/DL (8.5-10.1); Potassium 4.8 MMOL/L (3.5-5.1); Total Protein 8.1 G/DL (6.4-8.3)
[2018-09-28] MEDS ORDERED: ASPIRIN 325 MG TABLET PO STA (15:06)
[2018-09-28] MEDS ORDERED: ONDANSETRON 4 MG/2 ML VIAL IV ONE (15:15)
[2018-09-28] MEDS ORDERED: MORPHINE 4 MG/1 ML VIAL IV ONE (15:15)
[2018-09-28] MEDS ORDERED: NITROGLYCERIN 2% OINT 1 INCH/GM PACK TOP STA ×2 (15:29→15:30)
[2018-09-28] MEDS ORDERED: FUROSEMIDE 40 MG/4 ML VIAL IV STA (15:30)
[2018-09-28] MEDS: ENOXAPARIN 120 MG/0.8 ML SYRINGE SUBCUT STA ×2 (15:35→15:45)
[2018-09-28] MEDS ORDERED: ACETAMINOPHEN 325 MG TABLET PO PRN (15:53)
[2018-09-28] MEDS ORDERED: MAGNESIUM SULF RIDER 2 GM in PREMIX 1 EACH IV PRN (15:53)
[2018-09-28] MEDS ORDERED: DOCUSATE SODIUM 100 MG CAPSULE PO PRN (15:53)
[2018-09-28] MEDS ORDERED: MAGNESIUM SULF RIDER 4 GM in PREMIX 1 EACH IV PRN (15:53)
[2018-09-28] MEDS ORDERED: FUROSEMIDE 100 MG/10 ML VIAL ONE (15:53)
[2018-09-28] MEDS ORDERED: ONDANSETRON 4 MG/2 ML VIAL IV PRN (15:53)
[2018-09-28 17:07] LABS: CKMB % 4.9 %
[2018-09-28 17:14] LABS: Troponin I 15.2 NG/ML (0.00-0.045)
[2018-09-28 19:10] LABS: CKMB % 6.1 %
[2018-09-28 19:15] LABS: Troponin I 24.1 NG/ML (0.00-0.045)
[2018-09-28 19:48] LABS: Apearance,Urine CLEAR (Clear); Bilirubin,Urine Negative (Negative); Blood, Urine Negative (Negative); Glucose,Urine (UA) Negative (Negative); Hyaline Casts,Urine 8 /LPF (0-3); Ketones,Urine Negative (Negative); Mucus,Urine Occasional /LPF (Occasional); Nitrite,Urine Negative (Negative); Protein,Urine 100 MG/DL; RBC,Urine 1 /HPF (0-4); Urine Color Yellow (Yellow); Urine Specific Gravity 1.012 (1.001-1.035); Urine Urobilinogen < 2.0 EU/DL (0.2-1.0); WBC,Urine 1 /HPF (0-6)
[2018-09-28 22:55] LABS: CKMB % 7.3 %
[2018-09-28 23:24] LABS: Troponin I 38.9 NG/ML (0.00-0.045)
[2018-09-29 05:02] LABS: Basophils % 0.4 % (0.0-0.8); Eosinophils # 0.1 10*3/uL (0.0-0.87); Eosinophils % 0.9 % (0.00-10.9); Hematocrit 32.6 VOL% (42.0-52.0); Immature Granulocytes % 0.4 %; Immature Granulocytes Absolute 0.03 #; Lymphocytes # 1.1 10*3/uL (1.4-4.0); Lymphocytes % 15.5 % (21.2-54.2); Mean Corpuscular HGB Conc 30.7 GM/DL (32-36); Mean Corpuscular Hemoglobin 26 PG (27-34); Mean Corpuscular Volume 84.9 FL (87-102); Mean Platelet Volume 11.6 FL (9.6-12.0); Monocytes # 0.6 10*3/uL (0.11-0.8); Monocytes % 8.2 % (1.7-12.7); Neutrophils # 5.3 10*3/uL (1.4-7.4); Neutrophils % 74.6 % (38.7-73.9); Platelet Count 263 T/CUMM (130-400); Red Blood Count 3.84 MC/CUMM (3.8-5.5); Red Cell Distribution Width 14.7 % (9.3-17.3)
[2018-09-29 05:27] LABS: Albumin 2.9 G/DL (3.4-5.0); Bilirubin,Total 0.7 MG/DL (0.2-1.0); Calcium 8.5 MG/DL (8.5-10.1); Osmolality,Calculated 285.8 MOS/KG (273-304); Potassium 4.8 MMOL/L (3.5-5.1); Total Protein 7.4 G/DL (6.4-8.3)
[2018-09-29 05:43] LABS: CKMB % 7.9 %
[2018-09-29 05:47] LABS: Troponin I 90.1 NG/ML (0.00-0.045)
[2018-09-29] MEDS ORDERED: ROSUVASTATIN 20 MG TABLET PO SCH (09:00)
[2018-09-29] MEDS ORDERED: PANTOPRAZOLE 40 MG TABLET PO SCH (09:00)
[2018-09-29] MEDS ORDERED: ASPIRIN EC 325 MG TABLET PO SCH (09:00)
[2018-09-29] MEDS ORDERED: amLODIPine 2.5 MG TABLET PO SCH (09:00)
[2018-09-29] MEDS: METOPROLOL TARTRATE 25 MG TABLET PO SCH ×3 (09:02→21:02)
[2018-09-29] MEDS: ENOXAPARIN 120 MG/0.8 ML SYRINGE SUBCUT SCH ×2 (09:02→21:00)
[2018-09-29] MEDS: SODIUM CHLORIDE 0.45% 1,000 ML IV SCH (09:08)
[2018-09-29] MEDS ORDERED: POTASSIUM CHLORIDE RIDER 10 MEQ in PREMIX 1 EACH IV PRN (11:52)
[2018-09-29] MEDS ORDERED: MAGNESIUM SULF RIDER 2 GM in PREMIX 1 EACH IV PRN (11:52)
[2018-09-29] MEDS ORDERED: DEXTROSE 50% 25 GM/50 ML SYRINGE IV PRN (20:19)
[2018-09-29] MEDS ORDERED: GLUCAGON 1 MG VIAL IM PRN (20:19)
[2018-09-29] MEDS ORDERED: INSULIN REGULAR 100 UNIT/ML SUBCUT SCH (21:00)
[2018-09-30] MEDS: SODIUM CHLORIDE 0.45% 1,000 ML IV SCH ×2 (02:18→04:35)
[2018-09-30 05:01] LABS: INR 1.2; Partial Thromboplastin Time 36.4 SECS (0-40)
[2018-09-30 05:09] LABS: Basophils % 0.3 % (0.0-0.8); Eosinophils % 0.1 % (0.00-10.9); Hematocrit 30.7 VOL% (42.0-52.0); Hemoglobin 9.7 GM/DL (14.0-18.0); Immature Granulocytes % 0.5 %; Immature Granulocytes Absolute 0.06 #; Lymphocytes # 1.3 10*3/uL (1.4-4.0); Lymphocytes % 10.8 % (21.2-54.2); Mean Corpuscular HGB Conc 31.6 GM/DL (32-36); Mean Corpuscular Hemoglobin 26 PG (27-34); Mean Corpuscular Volume 83.2 FL (87-102); Mean Platelet Volume 11.8 FL (9.6-12.0); Monocytes # 0.9 10*3/uL (0.11-0.8); Monocytes % 7.5 % (1.7-12.7); Neutrophils # 9.4 10*3/uL (1.4-7.4); Neutrophils % 80.8 % (38.7-73.9); Platelet Count 277 T/CUMM (130-400); Red Blood Count 3.69 MC/CUMM (3.8-5.5); Red Cell Distribution Width 14.7 % (9.3-17.3); White Blood Count 11.6 T/CUMM (4-12)
[2018-09-30 05:28] LABS: Calcium 8.2 MG/DL (8.5-10.1); Osmolality,Calculated 281.4 MOS/KG (273-304)
[2018-09-30] MEDS ORDERED: diphenhydrAMINE CAP 25 MG CAPSULE PO ONE (06:30)
[2018-09-30] MEDS ORDERED: DIAZEPAM 5 MG TABLET PO ONE (06:30)
[2018-09-30 08:09] VITALS: BP 130/80
[2018-09-30] MEDS ORDERED: LIDOCAINE 1% 20 ML VIAL ONE (08:11)
[2018-09-30] MEDS ORDERED: HYDROmorphone 2 MG/1 ML VIAL ONE (08:12)
[2018-09-30] MEDS ORDERED: MIDAZOLAM 2 MG/2 ML VIAL ONE ×3 (08:13→10:43)
[2018-09-30] MEDS ORDERED: ASPIRIN 325 MG TABLET ONE (08:22)
[2018-09-30] MEDS ORDERED: HEPARIN 5,000 UNIT/1 ML VIAL ONE ×3 (09:05→09:18)
[2018-09-30] MEDS ORDERED: DOPamine 800 MG/250 ML PREMIX IV ONE (09:05)
== END 2018-09-30 10:54 | disposition expired | DRG 215 ==
LOC: N.ED 13:48 → N.EDINP 15:53 → N.TELES 16:34
PROVIDERS: ADMIT Internal Medicine Cardiovascular Disease; ATTEND Internal Medicine Cardiovascular Disease
PROC: CLCCHCL (ICD-10-PCS; 2018-09-30 08:45)